=== PATIENT | male | born 1940 | race Caucasian/White ===

== ENCOUNTER → 2023-11-07 10:13 | Outpatient (REF) | payer OTHER, SELFPAY | LOC: HWRAD 10:13 | PROVIDERS: ATTENDING PHYSICIAN Internal Medicine | DX: R63.4 Abnormal weight loss (principal); Z00.00 Encounter for general adult medical examination without abnormal findings | CPT/HCPCS: 71046 ==

== ENCOUNTER → 2023-11-14 09:04 | Outpatient (REF) | payer OTHER, SELFPAY | LOC: DHCBS HW 09:04 | PROVIDERS: ATTENDING PHYSICIAN Internal Medicine Cardiovascular Disease; FAMILY PHYSICIAN Internal Medicine | DX: I35.0 Nonrheumatic aortic (valve) stenosis (principal) | CPT/HCPCS: 93306 ==

== ENCOUNTER → 2023-12-13 11:27 | Outpatient (REF) | payer OTHER, SELFPAY | LOC: PET 11:27 | PROVIDERS: ATTENDING PHYSICIAN Specialist | DX: C61 Malignant neoplasm of prostate (principal) | CPT/HCPCS: 78815 ==

== ENCOUNTER → 2024-01-02 09:07 | Outpatient (REF) | payer OTHER, SELFPAY | LOC: PET 09:07 | PROVIDERS: ATTENDING PHYSICIAN Internal Medicine | DX: R91.1 Solitary pulmonary nodule (principal); C61 Malignant neoplasm of prostate | CPT/HCPCS: 78815; A9552 ==

== ENCOUNTER → 2024-02-18 08:24 | Outpatient (REF) | payer OTHER, SELFPAY | LOC: HWRAD 08:24 | PROVIDERS: ATTENDING PHYSICIAN Internal Medicine | DX: R94.2 Abnormal results of pulmonary function studies (principal); R91.8 Other nonspecific abnormal finding of lung field | CPT/HCPCS: 71260; Q9967 ==

== ENCOUNTER → 2024-04-30 08:09 | Outpatient (REF) | payer OTHER, SELFPAY | LOC: HWRCS 08:09 | PROVIDERS: ATTENDING PHYSICIAN Internal Medicine Cardiovascular Disease; FAMILY PHYSICIAN Internal Medicine | DX: I35.0 Nonrheumatic aortic (valve) stenosis (principal) | CPT/HCPCS: 93306 ==

== ENCOUNTER → 2024-09-22 09:20 | Outpatient (REF) | payer OTHER, SELFPAY | LOC: HWRAD 09:20 | PROVIDERS: ATTENDING PHYSICIAN Internal Medicine Critical Care Medicine; FAMILY PHYSICIAN Internal Medicine | DX: R91.1 Solitary pulmonary nodule (principal) | CPT/HCPCS: 71250 ==

== ENCOUNTER → 2025-03-15 12:42 | Outpatient (REF) | payer OTHER, SELFPAY | LOC: HWRAD 12:42 | PROVIDERS: ATTENDING PHYSICIAN Nurse Practitioner Family | DX: R06.09 Other forms of dyspnea (principal) | CPT/HCPCS: 71046 ==

== ENCOUNTER → 2025-03-18 10:07 | Outpatient (REF) | payer OTHER, SELFPAY | LOC: RCS 10:07 | PROVIDERS: ATTENDING PHYSICIAN Internal Medicine Cardiovascular Disease; FAMILY PHYSICIAN Internal Medicine | DX: I35.0 Nonrheumatic aortic (valve) stenosis (principal) | CPT/HCPCS: 93306 ==

== ENCOUNTER 2025-03-24 12:41 | Day surgery (SDC) | payer OTHER, SELFPAY ==
--- NOTE | 2025-03-23 15:55 | CONSULT.STRU ---
Addendum entered and electronically signed by CINDY Bustamante 03/24/25 15:24:
DOS 03/24/2025
Original Note:
Consultation
-
Date/Time Consultation Requested: 03/24/2025
Date/Time Consultation Performed: 03/24/2025
Requesting Provider: Michelle Mckeon MD
Performing Provider: CINDY Bustamante
Reason for Consultation: /TAVR
Patient History
Physicians
Family Physician: Stacie Black MD
Outpatient Pin Sorter And Bagger: Mark Olsen MD
Primary Pin Sorter And Bagger: Mark Olsen MD
History of Present Illness
Mr. Raza is a very pleasant 85 yom with a past medical history significant for , HTN, HLD, and TIA. His most recent echocardiogram from 03/18/2025 is notable for EF 53-60%, AV P/M 59/33, JOSE CRUZ 0.7, Pk laura 3.83, trace AI, mild MR, PAP 30. From a
symptomatology standpoint, patient describes EDWARDS more noticeable over the last several weeks and more so when playing tennis. Discussed the pathophysiology and treatment optons of including SAVR and TAVR. Prescription, appointments, TAVR booklet,
and contact information given to patient. Allowed for and answered questions to the best of my ability.
Past Medical History
Past Medical History: CVA/TIA, HTN, Valvular Disease (Aortic stenosis) and Other (hyperlipidemia. OA, cataracts, gout,m BPH, prostate Ca)
Past Surgical History
Past Surgical History: Orthopedic ((R) femur ORIF) and Other (cataract surgery)
Dental History
Dr. Urbano
Family History
Mother: Cause of (diabetes)
Father: Cause of (cancer)
Social History
Alcohol: None
Drug: None
Tobacco: Non-Smoker
Personal:
Living: With Family
Allergies
Allergy/AdvReac Type Severity Reaction Status Date / Time
No Known Allergies Allergy Unverified 09/25/11 15:29
Home Medications
�Medication �Instructions �Recorded �Confirmed �Type
Vitamin B-12 1 tab sublingual DAILY 09/25/11 09/25/11 History
aspirin 325 mg tablet 325 mg PO DAILY 09/25/11 09/25/11 History
docosahexaenoic acid (dha)-epa 120 3 cap PO BID 09/25/11 09/25/11 History
mg-180 mg capsule
lvjcgnfysdn-nasmevsgc-oli C-Mn 750 1 tab PO BID 09/25/11 09/25/11 History
mg-600 mg-55 mg-5 mg tablet
lisinopril 10 mg tablet 10 mg PO DAILY 09/25/11 09/25/11 History
rosuvastatin 10 mg tablet (Crestor) 10 mg PO DAILY 09/25/11 09/25/11 History
rosuvastatin 10 mg tablet (Crestor) 10 mg PO DAILY 09/25/11 09/25/11 History
saw palmetto 450 mg capsule 450 mg PO QPM 09/25/11 09/25/11 History
STS%
STS %: 4.42
Review of Systems
-
History Source: Patient
General: Reports Fatigue
Respiratory: Reports EDWARDS
Cardiac: Reports No Symptoms
Abdomen/GI: Reports No Symptoms
: Reports No Symptoms
Musculoskeletal: Reports No Symptoms
Skin: Reports No Symptoms
Neurological: Reports No Symptoms
Vascular: Reports No Symptoms
Physical Exam
Labs
03/15/2025
BUN/Creatinine 15.17
GFR>60
HH: 15.3/45.2
Plt: 377
Diagnostic Studies
ECHOCARDIOGRAM 03/18/2025:
CONCLUSIONS
1. Small left ventricle with mild concentric left ventricular hypertrophy and
preserved systolic function, EF 53-60%
2. Thickened mitral leaflets with mild mitral regurgitation and normal left
atrium
3. Severe aortic stenosis, peak/mean gradient 59/33 mmHg, aortic valve area
0.7 cm2. No aortic regurgitation
4. Normal right heart with pulmonary artery systolic pressure of 30 mmHg
In April 2024 peak and mean aortic valve gradients were 67 and 40 mmHg. The
aortic valve area was 0.7 cm 2 and there was trace aortic regurgitation. The
ejection fraction was 55-60%.
Procedure Type:�Isolated AVR
Perioperative Outcome Estimate %
Operative Mortality 4.42%
Morbidity & Mortality 10.4%
Stroke 2.31%
Renal Failure 1.43%
Reoperation 3.91%
Prolonged Ventilation 5.27%
Deep Sternal Wound Infection 0.037%
Long Hospital Stay (>14 days) 4.42%
Short Hospital Stay (<6 days)* 33.9%
Exam
General: Well Developed, Well Nourished, No Apparent Distress and Comfortable
HEENT: Normocephalic
Respiratory: Clear
Cardiac: Murmur (III/ VESTA)
GI: Soft and Non Tender
Rectal: Deferred by Provider
Skin: Warm and Dry
Neuro: Awake, Alert, Oriented and AO x 3
Psych: Calm
Assessment / Plan
-
Aortic stenosis DATE OF SERVICE/CONSULT 03/24/2025
Continue with TAVR evaluation
Trend creatinine after contrast administration
CT TAVR
CT surgical consult
Frailty testing and KCCQ12 at consult
Continue Plavix
Dental clearance
Heart team discussion
Data Reviewed
-
EKG: Report Reviewed by me
Computer Consultant: Report Reviewed by me and Discussed with Physician
Echo: Report Reviewed by me and Discussed with Physician
Labs: Labs Reviewed by me
Old Records: Reviewed
[2025-03-24] VITALS (10 sets, daily range): BP systolic 95–145; BP diastolic 65–107; BMI 21.0
--- NOTE | 2025-03-24 12:53 | ITS.CL.CATH ---
Manager Of Enterprise - Catheterization
Cardiac Catheterization
Procedure Report:
LEFT AND RIGHT HEART CATHETERIZATION
Date of Procedure: March 24, 2025
Referring: Silvio Guadarrama MD
PROCEDURES:
1. Left heart catheterization, coronary angiogram.
2. Moderate sedation.
3. Right heart catheterization.
INDICATION: Pre-TAVR, recent echocardiogram showing severe aortic stenosis with mean transaortic gradient of 40 mmHg, new dyspnea on exertion
ACCESS: Right radial artery, 6Fr. sheath, under US guidance.
Right brachial vein, 6 Croatian sheath
HEMODYNAMICS : (mmHg)
RA (m) : 5
RV (s/d,m) : 20/3, 9
PA (s/d, m) : 20/8, 13
PCWP (m) : 10
PA saturation: 62.9% on room air
AO saturation: 89.9% on room air
RA saturation: 62.8% on room air
Cardiac Output : 3.92 L/min
Cardiac Index : 2.2 L/min/m-2
Systemic vascular resistance: 1448 dsc^(-5)
Pulmonary vascular resistance: 1.78 davidson unit
AO (s/d) : 102/60
LVEDP: 12mmHg
Peak to peak gradient across aortic valve is 26 mmHg with a estimated valve area of 0.61 cm�
CORONARY FINDINGS
Dominance: Right
Left Main Trunk (LMT): Large caliber vessel that gives rise to the LAD and LCx branches and there is mild diffuse atherosclerotic plaque.
Left Anterior Descending Artery (LAD): Large caliber vessel that gives off 2 major diagonal branches as it courses along the anterior inter-ventricular groove before wrapping around the cardiac apex. There is mild to moderate degree of tortuosity.
Proximal to mid LAD has diffuse 30% stenosis. D2 is a medium caliber small to medium caliber vessel with a ostial 70% stenosis.
Left Circumflex Artery (LCx): Large caliber vessel that gives off 1 major branching obtuse marginal (OM) branch as it courses along the atrio-ventricular (AV) groove. Ostial left circumflex has a 50% stenosis. Otherwise there is mild diffuse
atherosclerotic plaque.
Right Coronary Artery (RCA): Large caliber dominant vessel that gives rise to the posterior descending artery (RPDA) and postero-lateral ventricular (RPLV) branches distally. Ostial RCA has 30% stenosis. Mid RCA has diffuse 30 to 40% stenosis.
No focal obstructive stenosis.
SEDATION: 37 minutes of procedural sedation was utilized. IV Midazolam and IV Fentanyl were administered. An independent certified medical dosimetrist was present to assist with and help manage the patient's level of consciousness and physiologic status.
RADIATION SUMMARY: Fluoro Time (min): 7.2, Dose (mGy): 315, DAP (Gy.cm2) : 17.5
Closure Device: There were no immediate intra-procedural complications. The sheath was pulled in the operations label clerk and a vascular-band applied to the right wrist for radial artery hemostasis using the patent hemostasis technique.
Manual pressure was held over the right brachial venous access site with successful hemostasis.
CONCLUSIONS
1. Proximal to mid LAD has diffuse 30% stenosis. D2 is a medium caliber small to medium caliber vessel with a ostial 70% stenosis.
2. Ostial left circumflex has a 50% stenosis.
3. Ostial RCA has 30% stenosis. Mid RCA has diffuse 30 to 40% stenosis.
4. Normal right low sided filling pressures with normal cardiac output and mildly elevated systemic vascular resistance.
5. Peak to peak gradient across aortic valve is 26 mmHg with a estimated valve area of 0.61 cm�
RECOMMENDATIONS
1. Wean radial band per protocol. Monitor right hand perfusion and for bleeding from the radial site following removal of the vascular-band following trans-radial access.
2. Continue aggressive medical therapy and risk factor modification for secondary CAD prevention.
3. Continue workup for TAVR assessment with CT angiogram of chest, abdomen and pelvis as well as CT surgical evaluation.
Copy to: Silvio Guadarrama MD
Michelle Mckeon MD, FAC, [facility]
[2025-03-24] MEDS: LOW STRENGTH ASPIRIN 324 MG PO (13:47)
[2025-03-24] MEDS: NSS 1000 IV (16:24)
== END 2025-03-24 19:35 | disposition home or self-care (01) ==
LOC: CATH 12:41
PROVIDERS: ATTENDING PHYSICIAN Internal Medicine Interventional Cardiology; FAMILY PHYSICIAN Internal Medicine
DX: I35.0 Nonrheumatic aortic (valve) stenosis (principal); I25.10 Atherosclerotic heart disease of native coronary artery without angina pectoris; I10 Essential (primary) hypertension; E78.5 Hyperlipidemia, unspecified; Z86.73 Personal history of transient ischemic attack (TIA), and cerebral infarction without residual deficits; N40.0 Benign prostatic hyperplasia without lower urinary tract symptoms; Z79.02 Long term (current) use of antithrombotics/antiplatelets
CPT/HCPCS: 99152; 99153; C1894; C1769; 93460; Q9967

== ENCOUNTER → 2025-04-07 08:58 | Outpatient (REF) | payer OTHER, SELFPAY | LOC: RAD 08:58 | PROVIDERS: ATTENDING PHYSICIAN Nurse Practitioner Acute Care; FAMILY PHYSICIAN Internal Medicine | DX: I35.0 Nonrheumatic aortic (valve) stenosis (principal) | CPT/HCPCS: 74174; 75572; Q9967 ==

== ENCOUNTER → 2025-05-05 12:19 | Outpatient (REF) | payer OTHER, SELFPAY | LOC: HWRAD 12:19 | PROVIDERS: ATTENDING PHYSICIAN Internal Medicine Critical Care Medicine; FAMILY PHYSICIAN Internal Medicine | DX: R91.8 Other nonspecific abnormal finding of lung field (principal) | CPT/HCPCS: 71250 ==

== ENCOUNTER 2025-05-13 11:07 | Inpatient (IN) | payer OTHER, SELFPAY ==
[2025-05-06 08:21] VITALS: BMI 21.3
[2025-05-06 09:07] LABS: Hematocrit 40.2 % (39.0-52.0); Hemoglobin 13.6 g/dL (13.0-18.0); Mean Corp Hgb Conc. 33.8 g/dL (33.0-37.0); Mean Corpuscular Volume 103.1 fL (80.0-94.0); Nucleated Red Blood Cells % 0 % (-); Platelet Count 298 10^3/uL (130-400); Red Cell Dist. Width 13.6 % (11.5-14.5)
[2025-05-06 09:07] LABS: Urine Character Clear (Clear)
[2025-05-06 09:17] LABS: Urine Red Blood Cell 0-2 /HPF (0-2); Urine Squamous Cell 0-2 /LPF (Few); Urine White Cell 0-2 /HPF (0-5)
[2025-05-06 09:25] LABS: INR 1.07; PT 14.5 Sec (11.4-14.6)
[2025-05-06 09:47] LABS: ALT (SGPT) 17 U/L (0-50); AST (SGOT) 22 U/L (17-59); Albumin 4.0 g/dl (3.5-5.0); Alkaline Phosphatase 77 U/L (38-126); Blood Urea Nitrogen 21 mg/dl (9-20); Calcium 9.6 mg/dl (8.4-10.2); Carbon Dioxide 27 mmol/L (22-30); Chloride 103 mmol/L (98-107); Estimated Creatinine Clearance 53 ml/min; Glucose 110 mg/dl (70-99); Potassium 4.0 mmol/L (3.5-5.1); Sodium 138 mmol/L (135-145); Total Protein 7.1 g/dl (6.3-8.2); eGFR > 60.00
--- NOTE | 2025-05-06 09:59 | CM ---
Chart reviewed. Met with the patient, and daughter in PAT. Reviewed preoperative and postoperative instructions and restrictions, along with showering guidelines. Gave patient 2 soaps. Patient is agreeable to a home visit by CT
Transitional RN. Patient is independent of ADLS, still plays tennis,lives with his in [address], 1 [place], 0 DME. Plan is for the patient to return home with CT Transitional RN.
[2025-05-06 11:14] LABS: Glycohemoglobin (HgbA1c) 5.8 % (4.0-5.6)
[2025-05-13] VITALS (21 sets, daily range): BP systolic 87–138; BP diastolic 49–93; BMI 21.1
--- NOTE | 2025-05-13 11:50 | W.CVOR.SURPR ---
CVOR Surgeon Immed Pre Op
-
I have examined this patient prior to performance of the scheduled procedure.
The patient's condition is unchanged from the time of the dictated/written History and
Physical and the patient is able to undergo the scheduled procedure.
[2025-05-13] MEDS: ANCEF 10 IV (15:05)
[2025-05-13 16:13] LABS: ACT-LR - POC 294 Seconds (116-155)
--- NOTE | 2025-05-13 16:16 | CM ---
Reviewed chart. Mr. Raza is in the operating room today. Prior to admission he resides with his spouse in a two story home with one step to enter. Prior to admission he was independent with ambulation and adls. He does not have any DME in the home.
He has a prescription plan. Medical work-up in progress. The discharge plan is to return home with his spouse and a home visit by the Transitional Care Nurse when medically stable.
--- NOTE | 2025-05-13 16:51 | W.IMMPOSTOP ---
Surgical Immed Post Op Note
-
[id number]
STRUCTURAL HEART PROCEDURE NOTE: TAVR
Preoperative Dx:
Severe aortic stenosis with peak/mean gradients of 59/33 mmHg respectively, DI 0.2, JOSE CRUZ 0.7, peak velocity 3.83.
Mild mitral regurgitation
History of TIA
Femoral fracture status post ORIF in 2011
Osteoarthritis in bilateral hands
Arthropathies
Hypertension
Hyperlipidemia
BPH
Impaired fasting glucose
Prostate CA
Cataracts
Small intestinal diverticuli
Postoperative Dx:
Same
Procedures:
Left common femoral venous access with ultrasound and fluoroscopic guidance, micropuncture technique, long 6 Greek sheath
Left common femoral arterial access with tactile, ultrasound, and fluoroscopic guidance, micropuncture technique, limited angiography through the micropuncture sheath, long 6 Greek sheath placement
Right common femoral artery access with tactile, ultrasound, and fluoroscopic guidance, micropuncture technique, limited angiography, 8 Greek dilator placement
Perclose placement x 2 into right common femoral artery, 8 Greek sheath placement
Placement of temporary RV pacing wire via left common femoral venous access with threshold testing
Placement of pigtail catheter in right coronary cusp with limited aortography and confirmation of coplanar valve deployment angles
Placement of Hopkins E sheath via right common femoral arterial access
Wire purchase across the stenotic aortic valve (AL-1, soft-tipped straight, table J-wire, LVEDP assessment [not significantly elevated, 18 mmHg], Extra-stiff wire with curve proximal end)
Right transfemoral TAVR with placement of 29 mm ERINN 3 Resilia valve
Completion aortography
Completion transthoracic echocardiographic assessment (mean gradient 3 mmHg, no AI or paravalvular leak)
Removal of valve delivery system/Hopkins E sheath with right common femoral arterial management with Perclose sutures x 2, manual pressure
Completion right iliofemoral angiography x 2
Removal of temporary pacing wire
Removal of left common femoral arterial 6 Greek sheath with management with 6 Greek Angio-Seal, manual pressure
Removal of left common femoral venous 6 Greek sheath with management with manual pressure
Metal Drill Operator:
Dr. Michelle Mckeon
Cardiac Surgeon:
Dr. Dannie Wan
Anesthesia:
MAC with local to bilateral groins
Implants:
Hopkins Lifesciences, 29 mm ERINN 3 valve, model #9755 RS, serial #[id number]
Perclose x 2 to right common femoral artery
Angio-Seal, 6 Greek, 2 left common femoral artery
Cath Data:
Start: 1530hrs, Deploy: 1607hrs, End: 1631hrs
FT: 12.0, mGy: 147, DAP: 18.6, Contrast: 110
Mean 3mmHg, no AI/PVL
Complications:
No significant complications
The balloon to expand the TAVR valve, after partial successful inflation, would not allow for additional saline/inflation of the balloon. The TAVR valve was in 'hourglass' shape. Fortunately, with a slightly extended pacing run and additional
pressure on the insufflator, the balloon was able to reach full expansion with good expansion of the valve circumferentially. We inspected the TAVR valve delivery system and balloon ex vivo and no causative issue could be identified to explain this
difficulty in inflation. It is in enigma as to why this valve allowed for initial inflation with a sudden stop and then resumption of the ability to insufflation.
Condition:
Neuro intact
Stable/guarded to recovery
--- NOTE | 2025-05-13 17:26 | ITS.CL.TAVR ---
Tool Lathe Operator - TAVR Report
TAVR PRocedure
Procedure Report:
TRANSCATHETER AORTIC VALVE REPLACEMENT
Date of Procedure: May 13, 2025
Referring: Silvio Guadarrama MD
Operators: Drs. Michelle Mckeon and Dannie Wan
PROCEDURE PERFORMED:
1. Successful placement of 29 mm Hopkins Rios S3 aortic valve via right common femoral approach.
2. Ultrasound-guided access.
3. Bilateral femoral angiography.
ACCESS:
1. Right common femoral artery, 8 Indian sheath, under ultrasound guidance using a micropuncture kit.
2. Right common femoral vein, 6 Indian sheath, under ultrasound guidance using a micropuncture kit.
3. Left common femoral artery, 6 Indian sheath, under ultrasound guidance using a micropuncture kit.
Ultrasound was utilized for vascular access. The right and left femoral artery and vein were visualized under ultrasound, and the vessels was patent and arteries were pulsatile. An image was stored permanently in the patient's medical record.
Under direct ultrasound guidance, a 6 Indian sheaths was inserted into the left common femoral artery and vein, and an 8 Indian sheath in the right common femoral artery, respectively, using a micropuncture kit through a modified Seldinger technique.
PREPROCEDURE NYHA CLASS: II
DESCRIPTION OF PROCEDURE: The patient was referred for assessment of severe symptomatic aortic stenosis and following a comprehensive evaluation it was felt that transcatheter aortic valve replacement (TAVR) would be the most appropriate treatment.
Informed consent was obtained prior to the procedure. A 'time-out' was called and the procedural plan was verbally confirmed by anesthesia, surgery, perfusion, and labor law professor staff.
Arterial and venous access site were obtained in the left common femoral artery and vein using ultrasound guidance and micropuncture technique. 6 Fr. sheaths were inserted.
A 5 Fr. transvenous pacing wire was advanced to the right ventricle where excellent pacing thresholds were obtained.
A 5 Fr. pigtail catheter was then advanced to the proximal ascending aorta / right aortic cusp where angiography was performed in multiple angles to define the co-planar angle that was most appropriate valve deployment (SOLORIO 10/ Cran 5).
Ultrasound guidance was then used to obtain arterial access in the right common femoral artery and a 4 Fr. micropuncture sheath was inserted. Angiography was performed and the arteriotomy site appeared appropriate for preclosure with two Perclose
devices. An 8 Fr sheath was then inserted back into the common femoral artery over a J-tipped guidewire. An AL1 catheter was positioned in the proximal descending aorta. An Extra Stiff 0.035' J-tip wire was inserted to provide extra-support to
facilitate the Hopkins eSheath delivery. The 16 Fr. Hopkins eSheath was successfully advanced in the descending thoracic aorta.
An AL1 catheter was advanced through the Hopkins eSheath over a 0.035' J-tip guide wire. The AL1 catheter was positioned just above the aortic valve. A 0.035' Straight tip wire probed the aortic valve and crossed the stenotic leaflets. The AL1
was then advanced to the mid left ventricle. Estimated LV end-diastolic pressure invasively was 18mmHg. An Amplatz Extra-stiff wire with a generous curved tip was then positioned in the left ventricular apex. A 29 mm Hopkins Rios S3 valve was
brought to the table and the orientation of the valve on the balloon delivery system was confirmed by all operators. The Rios S3 valve was advanced through the eSheath and into the proximal descending thoracic aorta. The Rios S3 valve was
centered on the delivery balloon and the entire system was retroflexed as it crossed the aortic arch. The Rios S3 delivery system was then advanced across the stenotic valve and the 29mm Rios S3 valve was deployed during rapid pacing. While
inflating the valve balloon there was an unexplained glitch where the balloon stopped expanding two [address] in without clear explanation despite additional pressure being applied to inflate the balloon but thankfully with some manipulation
we were eventually able to get the valve fully expanded resulting in a longer pacing run. The valve deployment was otherwise uneventful. Transthoracic echocardiographic images post valve deployment revealed minimal aortic insufficiency with
excellent position of the aortic prosthesis.
The Hopkins balloon and delivery system were then removed. The Hopkins sheath was removed and the Perclose knots were advanced to the arteriotomy site resulting in excellent hemostasis.
Femoral angiography: Femoral arteriotomy bilaterally is noted to be above the bifurcation and below the inferior epigastric artery. There is minimal luminal irregularities in the visualized external iliac and femoral vessels.
CONCLUSIONS:
1. Severe symptomatic aortic stenosis. Successful deployment of a 29 mm Rios S3 valve with minimal aortic insufficiency post procedure
2. Successful arteriotomy closure with 2 Perclose devices.
Michelle Mckeon MD, [facility], [facility]
Copy to: Silvio Guadarrama MD
[2025-05-13] MEDS: ANCEF IV (18:14)
--- NOTE | 2025-05-13 18:58 | PTCARENOTE ---
Pt received from recovery area post TAVR. Pt reported mild groin discomfort. Right femoral site with dry and intact dressing, no sign of bleeding or hematoma. Left groin dressing with small marked area of drainage, no sign of hematoma. Pt oriented X
3 , neuro assessment unremarkable as noted. Pt voiding without difficulty. Telemetry shows sinus rhythm with first degree AV block, SBP's 100-118, levo infusing at 2mcg's. Activity restrictions reviewed with pt and his who state understanding.
Plan to monitor closely overnight, CXR and ECHO on 05/14.
[2025-05-13] MEDS: ZYLOPRIM 300 MG PO (19:15)
[2025-05-13] MEDS: CRESTOR 20 MG PO (21:30)
[2025-05-13] MEDS: ANCEF 5 IV (21:30)
--- NOTE | 2025-05-13 22:35 | PTCARENOTE ---
Assumed care of the pt @ 1900. Pt is AAOx3 family at bedside. SR with 1st degree AVB on the monitor Levophed infusion titrated off see flowsheet. Neuro intact. Rt groin dressing c/d/i no hematoma Left dressing sm amt blood marked and unchanged no
evidence of hematoma + distal pulses. POC discussed with pt. Call hernandez within reach.
[2025-05-14 02:20] VITALS: BP 128/79
[2025-05-14 02:30] VITALS: BMI 20.8
[2025-05-14 03:38] LABS: Hematocrit 37.3 % (39.0-52.0); Hemoglobin 12.9 g/dL (13.0-18.0); Mean Corp Hgb Conc. 34.6 g/dL (33.0-37.0); Mean Corpuscular Volume 101.6 fL (80.0-94.0); Platelet Count 241 10^3/uL (130-400); Red Cell Dist. Width 13.4 % (11.5-14.5)
[2025-05-14 03:56] LABS: Blood Urea Nitrogen 22 mg/dl (9-20); Calcium 9.3 mg/dl (8.4-10.2); Carbon Dioxide 26 mmol/L (22-30); Chloride 104 mmol/L (98-107); Estimated Creatinine Clearance 58 ml/min; Glucose 155 mg/dl (70-99); Potassium 4.5 mmol/L (3.5-5.1); Sodium 136 mmol/L (135-145); eGFR > 60.00
[2025-05-14 08:02] VITALS: BP 102/72
--- NOTE | 2025-05-14 08:08 | W.PN.CT ---
Today's Communication / Plan
-
-pod #1
-no issues overnight
-nsr, PVCs. No myles or pauses
-Echo today
-possible discharge
Assessment / Plan
-
- Severe symptomatic - s/p Right transfemoral TAVR with placement of 29 mm ERINN 3 Resilia valve on 05/13/25, pod #1
- Intraop TTE: Mean 3mmHg, no AI/PVL
- Mild mitral regurgitation
- History of TIA
- Femoral fracture status post ORIF in 2011
- Osteoarthritis in bilateral hands
- Arthropathies
- Hypertension
- Hyperlipidemia
- BPH
- Impaired fasting glucose
- Prostate CA
- Cataracts
- Small intestinal diverticuli
Discussed patient care with: Nursing and Care Team
Subjective
-
Date of Service: May 14, 2025
Objective Data
-
Lab Results
05/14/25 02:29
05/14/25 02:29
PT 14.5 Sec (11.4-14.6) 05/06/25 08:31
INR 1.07 05/06/25 08:31
Vital Signs
Vital Signs
Temp Pulse Resp BP Pulse Ox
97.9 F 79 20 128/79 96
05/14/25 08:02 05/14/25 05:00 05/14/25 08:02 05/14/25 02:20 05/14/25 08:02
CT Intake/Output/Weight
05/13/25 05/14/25 05/14/25
18:59 06:59 18:59
Intake Total 1500 / 1500
Output Total 700 / 700
Balance 800 / 800
SaO2: 96
Physical Exam
-
General: Awake and AOx3
Cardiovascular: Regular rate & rhythm, No Murmurs and No Rub
Respiratory: Clear
Incision: Clean, Dry and Intact (soft, no hematoma b/l)
Extremities: No Edema
Data Reviewed
-
Lab Results: Results Reviewed
Medications: Active Meds Reviewed
Chest X-Ray: Report Reviewed and Image Reviewed
ECG: Report Reviewed and Image Reviewed
--- NOTE | 2025-05-14 08:22 | W.PN.ANS.POP ---
Anesthesia Post Operative
- Anesthesia Post Op Note
Vital Signs Stable-See Nursing Note: Yes
Airway Patent: Yes
Adequate Pain Control: Yes
Change in Mental Status: No
Current Postoperative Nausea & Vomiting: No
Anesthesia Complications: No
General Anesthetic Recall: No
Unplanned Admission: No
Post Op Hydration Adequate: Yes
[2025-05-14] MEDS: TOPROL XL PO (08:45)
[2025-05-14] MEDS: PLAVIX 75 MG PO (08:45)
[2025-05-14] MEDS: CASODEX 50 MG PO (08:45)
[2025-05-14] MEDS: VITAMIN C 500 MG PO (08:45)
--- NOTE | 2025-05-14 09:11 | CM ---
Reviewed chart. Met with Mr. Raza to review discharge plans. He states he is feeling well and maybe able to go home soon. He states prior to admission he resides with his spouse in a two story home with two steps to enter. He states he has a full
flight of steps to get to bedroom/full bathroom. He states he has a powder room on the first floor. He states prior to admission he was independent with ambulation and adls. He states he has a walker in the garage in storage that he is not using.
He states he has a prescription plan and uses [facility]. He states his spouse will be home to assist in his care if needed. He states he has been ambulating in the room. We reviewed a home visit by the Transitional Care Nurse. He is
agreeable to a home visit. Medical work-up in progress. The discharge plan is to return home with his spouse and a home visit by the Transitional Care Nurse when medically stable.
--- NOTE | 2025-05-14 09:37 | W.PN.CARDCBS ---
Addendum entered and electronically signed by Michelle Mckeon MD 05/14/25 15:17:
I saw and examined the patient.
The Home Appraiser's note was reviewed and I agree with the note.
Comment: Overnight patient did well with no acute complaints. He has been ambulated within his room without any difficulty. He denies any lightheadedness chest discomfort or shortness of breath.
Signs and labwork reviewed. On exam patient is well-appearing, out of bed in a chair, awake, alert and oriented x 3, regular rate, normal S1 and S2, no murmurs, rubs or gallops, lungs are clear to auscultation bilaterally, no carotid bruits,
abdomen is soft, nontender, nondistended with active bowel sounds, bilateral groin sites with dressing in place which is clean, dry and intact without evidence of hematoma or bruit. Warm extremities without significant edema.
Telemetry with no significant evidence of heart blocks or tachyarrhythmias/ectopy.
Echocardiogram reviewed by myself showed preserved all overall LV systolic function with trans aortic mitral gradient across the 29 mm Hopkins ERINN S3 TAVR valve of 8 mmHg. No PVL. No pericardial effusion
Recommendations:
1. Discussed with nursing in regards to ambulating halls. He had 1 episode of hypotension overnight but his blood pressures more recently have been stable and normal. Patient denies any dizziness or any associated symptoms with this.
2. Continue daily Plavix.
3. Echocardiogram postop day 1 post TAVR as noted above.
4. Continue all other home cardiac medications and we will work on setting up outpatient cardiology follow-up.
5. Discussed with patient importance of secondary risk factor management, importance of tolerating a Mediterranean type diet and staying physically active.
6. We also discussed outpatient cardiac rehab.
Michelle Mckeon MD, [facility], [facility]
Total time spent: 35 minutes
Original Note:
Today's Communication / Plan
-
Follow-up blood pressures
Continue Plavix
echo pending
Ambulate
Likely DC
Impression / Plan
-
Primary Traffic Sign Supervisor: Dr. Guadarrama
Assessment:
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
- Mild mitral regurgitation
- History of TIA
- Femoral fracture s/p ORIF 2011
- OA
- Hypertension
- Hyperlipidemia
- BPH
- Impaired fasting glucose
- Prostate CA
ECHO 03/18/2025: EF 53 to 60%, mild LVH, mild MR, severe with peak/mean gradients 59/33 mmHg, JOSE CRUZ 0.7 cm�, normal right heart
Echo 05/13/2025: EF 55 to 60%, status post 29 mm Hopkins ERINN TAVR with mean gradient 3 mmHg, no significant regurg
Plan:
- Patient's status post right transfemoral TAVR 05/13/2025
- Feeling well overnight
- No groin pain
- In sinus rhythm on review of telemetry
- Echo pending
- Ambulate
- Blood pressure is on low side. Will repeat later this morning, and if improving will give dose of outpatient Toprol 12.5 mg daily
- Continue outpatient Plavix
- Outpatient cardiac follow-up arranged
- Cardiac rehab
- Likely for discharge today
Progress Note - Traffic Sign Supervisor
Subjective
Date of Service: May 14, 2025
Feeling well.
Objective
Labs:
05/14/25 02:29
05/14/25 02:29
Labs
Hgb 12.9 g/dL (13.0-18.0) L 05/14/25 02:29
Hct 37.3 % (39.0-52.0) L 05/14/25 02:29
Plt Count 241 10^3/uL (130-400) 05/14/25 02:29
PT 14.5 Sec (11.4-14.6) 05/06/25 08:31
INR 1.07 05/06/25 08:31
Sodium 136 mmol/L (135-145) 05/14/25 02:29
Potassium 4.5 mmol/L (3.5-5.1) 05/14/25 02:29
BUN 22 mg/dl (9-20) H 05/14/25 02:29
Creatinine 0.8 mg/dL (0.7-1.3) 05/14/25 02:29
Glucose 155 mg/dl (70-99) H 05/14/25 02:29
Vital Signs and I&O:
Vital Signs
Temp Pulse Resp BP Pulse Ox
97.9 F 61 20 102/72 96
05/14/25 08:02 05/14/25 08:30 05/14/25 08:02 05/14/25 08:45 05/14/25 08:41
Vital Signs
Temp Pulse Resp BP Pulse Ox
97.9 F 61 20 102/72 96
05/14/25 08:02 05/14/25 08:30 05/14/25 08:02 05/14/25 08:45 05/14/25 08:41
Intake & Output
05/12/25 05/13/25 05/14/25 05/15/25
07:59 07:59 07:59 07:59
Intake Total 1500 / 1500
Output Total 700 / 700
Balance 800 / 800
Physical Exam
Physical Exam
GEN: No distress, awake, alert, oriented x3
HEENT: supple, anicteric, mmm, EOMI
LUNGS: CTA bilaterally, no wheezes/rales
CV: Reg, S1/S2, 1/6 syst LSB
ABD: soft, BS+, NT/ND
EXT: No cyanosis, clubbing. trace edema of bilateral lower extremity
NEURO: Gross non-focal
SKIN: Warm, pink, dry. No rash
--- NOTE | 2025-05-14 10:13 | W.DCSUMMARY ---
Discharge Summary
Discharge Data
Date of Admission: 05/13/25
Date of Discharge: 05/14/25
-
Pending Results: No
Hospital Course
Primary care physician: Stacie Black
Outpatient ethanol quality leader: Raúl
Inpatient consultants: SALUD
Procedures:
1. 05/13/25 s/p Right transfemoral TAVR with placement of 29 mm ERINN 3 Resilia valve by Drs. Wan & Linda
Primary Diagnosis:
1. severe aortic stenosis
Secondary Diagnoses:
1. hx of TIA
2. femoral fx s/p ORIF 2011
3. osteoarthritis
4. hypertension
5. hyperlipidemia
6. BPH
7. impaired fasting glucose
8. hx prostate CA
9. hx cataract extraction
10. Gout
HPI: Patient is an 85y/oM with known aortic stenosis and complaints of decreasing exercise tolerance. Most recent echo demonstrates now severe aortic stenosis with peak and mean gradients of 59/33 mmHg respectively with aortic valve area of 0.7
cm� and preserved LV function. Cardiac cath revealed moderate coronary disease with recommendation for medical management. Patient was therefore referred for elective TAVR. After all preoperative workup was completed he was deemed a suitable
candidate to undergo the procedure.
Hospital course: Patient was electively admitted on 05/13/2025 where he underwent a uncomplicated right transfemoral TAVR with a 29 mm ERINN 3 Resilia valve by Drs. Wan and Linda. Patient was transferred to recovery with low-dose Levophed which
was weaned off without incident. Postop EKG demonstrated sinus bradycardia with first-degree AV block and incomplete right bundle branch block. He remained hemodynamically stable overnight on postop day 1 his EKG is unchanged. He is ambulatory
without difficulties. Follow-up echo was completed which demonstrates well seated TAVR with no significant leak, mean gradient of 8mmHg. Pt discharged to home in the care of his family with close follow up from the transitional care nurse from .
Home medication changes: All home meds resumed
Discharge Plan
-
Patient Disposition: Home (Routine Discharge)
Discharge Diagnosis/Procedures: TF-TAVR
Condition: Good
Diet: Low Cholesterol and 2 Gram Sodium
Activity: As tolerated
Driving Restrictions: No driving for 1 week
Bathing Restrictions: OK to Shower
Others Tests: 30 day follow up echocardiogram:06/10/2025 at 1pm at the [facility].
Other Services: Cardiac Rehab
Wound Care: Please do not apply lotions, creams or powders to groin areas. Please monitor for increased swelling, redness, pain or drainage. Notify your doctor if any occur.
Specialty Instructions: Weigh Daily- Call MD for wt gain/loss 3 lbs overnight/5 lbs in 1 week
Stand Alone Forms: DC Inst - TransFemoral (TAVR)
Referrals:
CT Transitional Care Nurse [Outside] - in one to two days
Referral Note:
The Cardiothoracic Transitional Care Nurse will call you to set up a visit in 1-2 days.
[facility] [Outside]
Referral Note: Cardiac Rehab Orientation appointment and� First Exercise appointment is on 06/09/2025 at 9:30.
The Cardiac Rehab gym is located on the first floor of the [facility].
Stacie Black MD [Family Provider, Internal Medicine] - in four to six weeks
Referral Note: Please make an appintment in four to six weeks.
Mitali Daniel CRNP [Specified Professional Personl, Cardiology] - 06/24/25 3:00 pm
Prescriptions:
New
acetaminophen 325 mg Tablet
650 mg PO Q6HPRN PRN (Reason: SAM, mild pain, or fever >101F) Qty: 0 0RF
Continued
bicalutamide [Casodex] 50 mg Tablet
50 mg PO DAILY
clopidogrel 75 mg Tablet
75 mg PO DAILY
allopurinol 300 mg Tablet
300 mg PO QPM
metoprolol succinate [Toprol XL] 25 mg Tablet Extended Release 24 Hr
12.5 mg PO DAILY
Vitamin B-12 50 mcg Lozenge
25 mcg PO HS
rosuvastatin 20 mg tablet
20 mg PO HS
Discharge Date and Time
Print Language: WELSH
[2025-05-14 11:12] VITALS: BP 126/72
[2025-05-14 11:17] VITALS: BP 136/84
[2025-05-14 11:26] VITALS: BP 144/55
[2025-05-14] MEDS: TOPROL XL 12.5 MG PO (11:55)
[2025-05-14 14:43] VITALS: BP 113/51
--- NOTE | 2025-05-14 15:42 | PTCARENOTE ---
Pt denies any discomfort up walking around unit and with cardiac rehab without problem. Echo done. Telemetry and IV devices removed. Discharge instructions reviewed with pt and his regarding activity and driving restrictions, wound care,
medications and their possible side effects, reporting cares and concerns and follow up appt's. Very good understanding verbalized. Pt escorted out via wheelchair and discharged to home.
== END 2025-05-14 15:46 | disposition home or self-care (01) | DRG 267 ==
LOC: IVU 11:07
PROVIDERS: Nurse Practitioner; ADMITTING PHYSICIAN Thoracic Surgery (Cardiothoracic Vascular Surgery); FAMILY PHYSICIAN Internal Medicine; OTHER PHYSICIAN Internal Medicine Interventional Cardiology
PROC: 02RF38Z Replacement of Aortic Valve with Zooplastic Tissue, Percutaneous Approach (ICD-10-PCS; 2025-05-13)
DX: I35.0 Nonrheumatic aortic (valve) stenosis (principal); I10 Essential (primary) hypertension; E78.5 Hyperlipidemia, unspecified; I44.0 Atrioventricular block, first degree; I45.10 Unspecified right bundle-branch block; R00.1 Bradycardia, unspecified; Z85.46 Personal history of malignant neoplasm of prostate; R73.01 Impaired fasting glucose; N40.0 Benign prostatic hyperplasia without lower urinary tract symptoms; H26.9 Unspecified cataract; M19.041 Primary osteoarthritis, right hand; M19.042 Primary osteoarthritis, left hand; M10.9 Gout, unspecified; Z86.73 Personal history of transient ischemic attack (TIA), and cerebral infarction without residual deficits; I25.10 Atherosclerotic heart disease of native coronary artery without angina pectoris
CPT/HCPCS: 33361; 36415; 71045; 71046; 80048; 80053; 81003; 81015; 82248; 83036; 83880; 85025; 85027; 85347; 85610; 86850; 86900; 86901; 86920; 87070; 93005; 93308; 93321; 93325; C1760; C1769; C1894; Q9967

== ENCOUNTER 2025-05-21 13:35 | Inpatient (IN) | payer OTHER, SELFPAY ==
[2025-05-20] VITALS (17 sets, daily range): BP systolic 83–139; BP diastolic 55–87; BMI 22.8
[2025-05-20 10:00] LABS: Hematocrit 35.6 % (39.0-52.0); Hemoglobin 12.2 g/dL (13.0-18.0); Mean Corp Hgb Conc. 34.3 g/dL (33.0-37.0); Mean Corpuscular Volume 103.8 fL (80.0-94.0); Nucleated Red Blood Cells % 0 % (-); Platelet Count 164 10^3/uL (130-400); Red Cell Dist. Width 13.2 % (11.5-14.5)
[2025-05-20 10:04] LABS: ALT (SGPT) 18 U/L (0-50); AST (SGOT) 22 U/L (17-59); Albumin 3.6 g/dl (3.5-5.0); Alkaline Phosphatase 80 U/L (38-126); Blood Urea Nitrogen 26 mg/dl (9-20); Calcium 9.0 mg/dl (8.4-10.2); Carbon Dioxide 25 mmol/L (22-30); Chloride 106 mmol/L (98-107); Estimated Creatinine Clearance 53 ml/min; Glucose 135 mg/dl (70-99); Potassium 3.8 mmol/L (3.5-5.1); Sodium 138 mmol/L (135-145); Total Protein 6.5 g/dl (6.3-8.2); eGFR > 60.00
--- NOTE | 2025-05-20 10:04 | ED.GENMED ---
History of Present Illness
General
Chief Complaint: Cardiac Symptoms
Source: patient
Exam Limitations: none
Time Seen by Provider: 05/20/25 09:24
Nursing documentation reviewed up to this point in time: agreed with
History of Present Illness
History of Present Illness:
Patient status post TAVR procedure last week with Dr. Wan, presents to ED from liaison planner office this morning, where he was found to be having high degree AV block. This was already outpatient evaluation from the procedure. Patient denies
chest pain or palpitations. Denies dizziness or shortness of breath. Denies nausea or vomiting. Patient does take metoprolol, but last dose was taken yesterday. Patient has been eating normally and drinking fluids since procedure. Denies fever
or chills. Denies vomiting or diarrhea.
Past History
Past History
ED Past Medical History: HTN and Hypercholesterolemia
ED Past Surgical History: None
Social History
Tobacco: Non-smoker
Employment: Employed
Review of Systems
Review of Systems
Allergies reviewed?: Yes
All Other Systems: ROS reviewed and negative except as documented in HPI and ROS
Constitutional: Reports no symptoms; Denies fever
Respiratory: Reports no symptoms; Denies trouble breathing
Cardiac: Reports no symptoms; Denies chest pain, palpitations or syncope
ABD/GI: Reports no symptoms; Denies vomiting
Musculoskeletal: Reports no symptoms
Skin: Reports no symptoms
Neurological: Reports no symptoms
Phy Exam
Physical Exam
Physical Exam:
Physical Exam
General: no apparent distress, not acutely ill. afebrile
Head: nc/at. eomi
Neck: supple. no jvd
Heart: irregular, systolic ejection murmur. equal radial pulses.
Lungs: no acute respiratory distress. clear bilaterally
Abdomen: normal bowel sounds. not tender.
Neuro: alert and oriented x 3. no focal neurological deficits
Skin: no rash
Psychiatric: well kept. interactive and cooperative
Extremities: no edema. no calf tenderness.
Course
Orders/Labs/Results
Orders:
Orders
05/20/25 09:20
Electrocardiogram (*1) Urgent
Reason for Study: Abnormal EKG
05/20/25 09:21
EKG- Treatment ONCE
05/20/25 09:37
Complete Blood Count/With Diff Urgent
Comprehensive Metabolic Panel Urgent
Lyme Progressive Urgent
Magnesium Urgent
Troponin I Urgent
05/20/25 09:56
Add On- LAB Urgent
Tests Added?: magnesium, lyme progressive
05/20/25 10:05
Electrocardiogram (*1) Urgent
Reason for Study: Other
Other Reason for Exam: Heart block
EKG- Treatment ONCE
05/20/25 11:58
Admit/Transfer Patient As Directed
Co-Sign Provider:
Level of Care: Observation services
Assign to:: IVU
Physician / Group: Niyah
Diagnosis: AV block s/p TAVR
Reason for Hospitalization: AV block s/p TAVR
PRN Pain Medication Management As Directed
May give lesser potent ordered pain med per pt: Yes
preference::
Protocol:: Medication orders for pain may be administered in a
manner that supports deferring to patient preference
when the pt is:
- Requesting an ordered lesser potent pain medication.
Least to most potent pain medications are defined
as: acetaminophen < NSAID < tramadol < opioids
(morphine, oxycodone, hydromorphone).
- Requesting a lesser dose of the same medication IF
ORDERED.
- Requesting a less intrusive route of administration
if both routes are prescribed by the provider (PO <
IV).
05/20/25 12:01
Code Status As Directed
Resuscitation Status: Full Code
05/20/25 16:19
Acetaminophen [Tylenol] 650 mg PO Q4HPRN PRN
Bisacodyl [Dulcolax] 10 mg RECTAL [id number] PRN
Docusate W/Senna [Senokot-S] 1 tablet PO BIDPRN PRN
Polyethylene Glycol Powder [Miralax] 17 grams PO DAILYPRN PRN
05/20/25 16:19
Activity As Directed
Activity Level: Ambulate
As Tolerated
With Assistance
Pneumatic Compression Sleeves As Directed
Type: Knee high
Vital Signs As Directed
Frequency: Per unit guidelines
Weight As Directed
Frequency: Once
Pulse Ox/spot Check [RESP] Routine
Quantity: 1
Rx Incentive Spirometry [RESP] Routine
Frequency: q1h while awake
DX Deep Vein Thrombosis Video Routine
05/20/25 18:00
Allopurinol [Zyloprim] 300 mg PO QPM
Cyanocobalamin [Vitamin B-12] 1,000 mcg PO QPM
05/20/25 22:00
Rosuvastatin Calcium [Crestor] 20 mg PO HS
05/21/25 05:44
Basic Metabolic Panel IN AM
Complete Blood Count/No Diff IN AM
05/21/25 08:00
Clopidogrel Bisulfate [Plavix] 75 mg PO DAILY
Abnormal Lab Results
05/20/25
09:37
RBC 3.43 L 10^6/uL
(4.70-6.10)
Hgb 12.2 L g/dL
(13.0-18.0)
Hct 35.6 L %
(39.0-52.0)
MCV 103.8 H fL
(80.0-94.0)
MCH 35.6 H pg
(27.0-31.0)
Absolute Neuts (auto) 6.8 H 10^3/uL
(1.4-6.5)
Absolute Monos (auto) 0.7 H 10^3/uL
(0.1-0.6)
Lymphocytes % 15.0 L %
(20.5-51.1)
BUN 26 H mg/dl
(9-20)
Glucose 135 H mg/dl
(70-99)
Troponin I 0.076 H* ng/ml
05/20/25 09:37
05/20/25 09:37
Vital Signs
Initial and Last Documented VS:
Initial Vital Signs
Temp Pulse Resp BP Pulse Ox
98.4 F 72 18 131/77 92
05/20/25 09:17 05/20/25 09:17 05/20/25 09:17 05/20/25 09:17 05/20/25 09:17
Last Documented Vital Signs
Temp Pulse Resp BP Pulse Ox
97.7 F 87 18 107/72 100
05/21/25 07:03 05/21/25 08:15 05/21/25 07:03 05/21/25 08:15 05/21/25 07:15
MDM/Problems Addressed
MDM/Problems Addressed:
History and exam concerning for high degree AV block versus complete heart block. Fortunately, patient is afebrile, hemodynamically stable, and without any symptoms, i.e. dizziness/shortness of breath/chest pain.
Patient will be admitted for further eval and treatment, including evaluation for potential pacemaker placement.
ZOLL pads placed on the patient.
*Pulse Oximetry
SaO2: 92
Oxygen Mode of Delivery: Room air
Patient hypoxic: no
*Critical Care Note
Total Time (30-74mins, 75-104mins- exclusive of procedures): Not Applicable
ED Attending Note
-
Portions of this chart may have been created with voice recognition software.� Occasional wrong word or��sound alike� substitutions may have occurred due to the inherent limitations of voice recognition software.
Discharge Plan
Departure
Patient Disposition: Admit
Date of Disposition: 05/20/25
Time of Disposition: 10:22
Admit to: IMU
Presentation/result/management discussed w/ accepting MD/DO: Hospitalist
Discharge Problem:
AV heart block
Interventions
Interventions:
*Risk Screen - Suicide Last Done: 05/20/25 09:17
*General Assessment Last Done: 05/20/25 09:17
*Neglect/Abuse Screening Last Done: 05/20/25 09:17
*ED- Fall Risk Assessment Last Done: 05/20/25 10:17
*ED COVID-19 Vaccine History Last Done: 05/20/25 16:44
*Nursing Disposition Last Done: 05/20/25 14:32
ED- Pulmonary Assessment Last Done: 05/20/25 10:17
ED- Cardiac Assessment Last Done: 05/20/25 10:17
Discharge Date and Time
Discharge Date/Time: 05/20/25 14:32
[2025-05-20 10:21] LABS: Troponin I 0.076 ng/ml
--- NOTE | 2025-05-20 10:35 | W.PN.CARDCBS ---
Addendum entered and electronically signed by Sherman Linder DO 05/20/25 13:41:
I saw and examined the patient.
The Core Feeder's note was reviewed and I agree with the note.
Comment:
Plan:
Patient presenting with asymptomatic significant first-degree block new left bundle branch block, PVCs.
Concern with recent TAVR for advancing conduction disease.
Initially discussed holding beta-staci and admitting for further observation, after discussion with electrophysiology and review of telemetry, patient appears appropriate for permanent pacemaker placement.
Continue to hold beta-staci
Discussed with at bedside
Discussed with emergency room
Discussed with electrophysiology
Original Note:
Today's Communication / Plan
-
admit for tele observation, will review with EP
hold toprol
Impression / Plan
-
Please see office note dated 05/20/25
Primary Prosthetic Makeup Designer: Dr. Guadarrama
Assessment:
- Presentation with AV block, asymptomatic
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
- Mild mitral regurgitation
- History of TIA
- Femoral fracture s/p ORIF 2011
- OA
- Hypertension
- Hyperlipidemia
- BPH
- Impaired fasting glucose
- Prostate CA
ECHO 03/18/2025: EF 53 to 60%, mild LVH, mild MR, severe with peak/mean gradients 59/33 mmHg, JOSE CRUZ 0.7 cm�, normal right heart
Echo 05/13/2025: EF 55 to 60%, status post 29 mm Hopkins ERINN TAVR with mean gradient 3 mmHg, no significant regurg
ECHO 05/14/25: EF 58%, mild cLVH, s/p #29 Hopkins ERINN TAVR with peak/mean gradients of 15/8mmHg, no paravalvular leak, no pericardial effusion
Plan:
- Patient presents with cardiology office due to asymptomatic conduction disease noted on EKG 1 week post TAVR.
- EKGs appear to be most consistent with SR with marked 1st degree av block and PVCs. patient asymptomatic. will review with EP
- admit for observation and follow on tele
- hold OP toprol, last dose 05/19 AM
- echo post TAVR on 05/14 with TAVR well seated, no paravalvular leak
- on plavix as OP, did not take yet this AM
- discussed may require PPM with patient and at bedside
- discussed with ER physician
Progress Note - Prosthetic Makeup Designer
Subjective
Date of Service: May 20, 2025
no complaints
Objective
Labs:
05/20/25 09:37
05/20/25 09:37
Labs
Hgb 12.2 g/dL (13.0-18.0) L 05/20/25 09:37
Hct 35.6 % (39.0-52.0) L 05/20/25 09:37
Plt Count 164 10^3/uL (130-400) D 05/20/25 09:37
Sodium 138 mmol/L (135-145) 05/20/25 09:37
Potassium 3.8 mmol/L (3.5-5.1) 05/20/25 09:37
BUN 26 mg/dl (9-20) H 05/20/25 09:37
Creatinine 1.0 mg/dL (0.7-1.3) 05/20/25 09:37
Glucose 135 mg/dl (70-99) H 05/20/25 09:37
Troponins
05/20/25
09:37
Troponin I 0.076 H*
Vital Signs and I&O:
Vital Signs
Temp Pulse Resp BP Pulse Ox
98.4 F 67 16 98/71 98
05/20/25 09:17 05/20/25 10:15 05/20/25 10:15 05/20/25 10:00 05/20/25 10:17
Vital Signs
Temp Pulse Resp BP Pulse Ox
98.4 F 67 16 98/71 98
05/20/25 09:17 05/20/25 10:15 05/20/25 10:15 05/20/25 10:00 05/20/25 10:17
Physical Exam
Physical Exam
GEN: No distress, awake, alert, oriented x3
HEENT: supple, anicteric, mmm, eomi
LUNGS: CTA B/L, no wheezes/rales
CV: Reg with ectopy, S1/S2, 1/6 syst LSB
ABD: soft, BS+, NT/ND
EXT: No cyanosis, clubbing, edema
NEURO: Gross non-focal
SKIN: Warm, pink, dry. No rash. B/L groin sites soft, NTTP.
[2025-05-20 11:48] LABS: Magnesium 1.8 mg/dl (1.6-2.3)
--- NOTE | 2025-05-20 14:19 | W.PN.UPDATE ---
Update Note
Progress Note Update
after discussion with EP and TAVR team, plan for PPM placement today. NPO. discussed with patient and he is agreeable to proceed. also discussed with patient's via telephone, she is at home. is not planning to come back to hospital today, but
states will come tomorrow.
[2025-05-20 14:56] LABS: Lyme Antibody Screen, EIA Negative (Negative)
--- NOTE | 2025-05-20 16:20 | ITS.CL.PACE ---
[employer] Technical Lead Senior Developer - Pacemaker Implant
Pacemaker Implant
Procedure Report:
Left Bundle Branch pacing dual chamber Permanent Pacemaker Placement:
Mr. Raza is an 85-year-old gentleman with history of PVC with severe As s/p s/p R TF TAVR 29 mm ERINN 3 Resilia valve 05/13/25 with h/o HTN, mild MR, TIA, prostate CA, HPL who had developed severe conduction disease and AV block and is in need for
a pacemaker.
Indications:
High degree heart block.
Date of the Procedure: 05/20/25
Pre-Operative Diagnosis: Advanced heart block
Post-Operative Diagnosis: Advanced heart block
Procedure Performed: LEFT BUNDLE BRANCH PACING WITH DUAL CHAMBER PERMANENT PACEMAKER IMPLANTATION.
Performing physician:
Kia Aranda MD
Anesthesia:
See anesthesia records
Detailed Description of the Procedure:
The patient was identified using hospital identification and informed consent obtained for the procedure. The risks were explained to the patient and the family including, but not limited to: Bleeding, infection, arrhythmia, stroke,
vascular/cardiac/lung puncture, surgery, pacemaker dependency/device malfunction. All questions were answered.
Anesthesia service provided sedation as reported separately. Antibiotics administered IV for risk of bacterial colonization. After obtaining informed and written consent, the patient was brought to the electrophysiology laboratory.
The initial rhythm was sinus rhythm with intermittent heart block with long 1st degree AV conduction and frequent PVCs.
A timeout was performed immediately before the procedure. The left chest was prepped from the nipple to the angle of the jaw with chlorhexidine, and draped following sterile technique in usual routine.�
A surgical pause and time out was performed immediately prior to the procedure with review of her medical history, recent labs, allergies and medications with site of procedure identified and consent noted in the chart. Antibiotics pre operatively
given. All team members concurred.
The procedure site was meticulously prepared with surgical scrub and allowed to dry with no pooling. Sterile draping was applied to cover the procedure site. The image intensifier was draped with sterile bag and positioned over the patient.
The left infraclavicular region was prepped and draped in the usual sterile fashion. Local anesthesia was administered subcutaneously using 1% lidocaine / Bupivacaine. The left cephalic vein cutdown was done and guide wires were advanced to the
inferior vena cava (IVC) under flouro guidance.
A subcutaneous pocket was created with blunt dissection and use of electrocautery. Hemostasis was excellent.
Attention then was turned to the left bundle branch pacing lead. The guide wire was advanced to the RA and was advanced to the RV. The preformed curved long hemostatic peel away HIS sheath was advanced into the RV cavity. A left bundle pacing wire
was advanced into the sheath to the tip with ventricular signals noted with unipolar manner. The sheath with the pacing lead was moved deeper into the RV cavity from the HIS location on the septum at a more inferior and distal to the HIS signals
based on the aortic valve location.
Once adequate signals were noted on the electrograms of the pacing lead in the sheath with W pattern signals on the RV septum, the lead was advanced and clockwise turns were done under fluoroscopic guidance. The septum was engaged and the lead was
paced intermittently after every 2-3 turns. The Impedance of the lead was measured that remained stable around 700 Ohm and the lead was not able to advance into the septum. The ventricular capture was monitored throughout and the captures gradually
changed from RV pacing to non-selective pacing to LBB pacing with R wave on V1.
With RBBB pattern noted on the pacing lead, it was decided to accept the location as optimal location. The long guiding sheath was cut and removed from the RV without change in lead position, impedance, sensing, or capture. The lead was sutured to
the underlying pectoralis fascia with 2-0 Ethibond stitches.
The RA lead was anchored in the right atrial appendage with engaging the active-fixation apparatus. There was excellent sensing, pacing, and impedance from the leads, with no diaphragmatic stimulation at 10 V output.�Bovie cautery, antibiotics, and
fluoroscopy were used.
The leads were attached to the pulse generator in standard configuration with acceptable sensing and threshold parameters. The pocket was irrigated with antibiotic solution; the pocket was inspected with no active bleeding noted. The device and the
leads were placed in the pocket.
A Tyrx pouch was placed around the device and the leads.
Deep subcutaneous tissues were closed with 3 layers of 2-0V loc sutures; and the dermis was reopposed using a running 4-0 Monocryl subcuticular suture. Sponge counts / sharp counts were appropriate.
Procedure End:
The procedure was tolerated well. Aquacel bandaged was applied. A pressure dressing was applied.
Estimated Blood loss:
5 cc
Specimens Removed:
No cultures and no specimens were obtained. No intraoperative pathology was identified.
Urine output:
None
Packs / Drains/ Tubes:
None
Instrument / Sponge Count Correct:
Yes
Complications of the Procedure:
None
Condition of Patient at Time of Transfer:
Hemodynamically stable with no neurological or vascular compromise.
Device information:�
Generator: SynapDx; Model: W1DR01; Serial # [id number]�
Atrial Lead: SynapDx; Model: 5076-52; Serial # [id number]
Measured data in the right atrium was sensing of 1.8 mV, impedance of 532 ohms and threshold of 1.0 V at 0.4ms�
LBB pacing lead: SynapDx; Model: 3830-69; Serial # [id number]
Measured data on the RV lead was sensing of 10.3mV, impedance of 608 ohms and threshold of 0.75V at 0.4ms
PROGRAMMING PARAMETERS:�
Néstor parameter settings were DDDR 70-130 �
����������� Paced AV interval: 180ms
����������� Sensed AV interval: 150 ms.
����������� Rate Adaptive A-V Interval: off
����������� Mode switch ON
�
Summary:
Successful implantation of MRI compatible LBB pacing dual chamber pacemaker.
Results/Recommendations:
1.Please follow up CXR�
2. Please provide patient with adequate pain control�
3. Pacing rate is set at 70 bpm to suppress PVCs. Rate can be reduced as needed.
4. Increase Metoprolol to suppress ventricular ectopy.
Instructions to be given to patient:�
- Please follow up with [facility] to get your wound checked in 2 weeks of your discharge. Then follow with
- Do not wet incision site until after it is evaluated at cardiology clinic. No baths or showers until then. Sponge baths / showers are OK but dab dry the dressing after it is wet.�
- Allow 'steri strips' to fall off on their own�
- Do not lift left elbow above shoulder, particularly with sudden jerking movements, for 1 month�
- Do not lift anything weighing more than 5 pounds with the left arm for 1 month�
- If you notice any fevers, shortness of breath, lightheadedness, chest pain, or worsening swelling in the wound site, please contact the arrhythmia clinic, contact your wire drawing machine tender, or present to the hospital for evaluation.�
Kia Aranda MD
Electrophysiology
[2025-05-20] MEDS: TYLENOL 650 MG PO (16:45)
[2025-05-20] MEDS: VITAMIN B-12 1000 MCG PO (16:46)
[2025-05-20] MEDS: ZYLOPRIM 300 MG PO (16:46)
--- NOTE | 2025-05-20 17:17 | PTCARENOTE ---
Received pt from lab s/p PPM setting DDDR 70-130. Pt is AAOx3 A/V paced on the monitor with frequent PVC's. PT c/o h/a Tylenol po given. Left cw pacer site Aquacel dressing c/d/i left arm immobilizer in place. Call hernandez within reach.
[2025-05-20] MEDS: ROXICODONE 5 MG PO (20:03)
[2025-05-20] MEDS: TOPROL XL 25 MG PO (20:04)
[2025-05-20 20:12] LABS: Glucose - Point of Care 146 mg/dl (70-99)
[2025-05-20] MEDS: MAALOX PLUS 1 TABLET PO (20:51)
[2025-05-20] MEDS: TIGAN 200 MG IM (20:56)
--- NOTE | 2025-05-20 21:35 | PTCARENOTE ---
Received pt in bed at 1900, pt c/o pressure to L chest area, frequent dry cough and 'not feeling good'. Bp 130/70's,Hr 80, Pox 96% RA,T 98.0. At approx 1950, pt became diaphoretic, pale, c/o pain 5-6/10 from left chest and feeling nauseated. O2
applied at 2L via NC. GLADIS Aquacel dressing intact with scant drainage in center, marked. No swelling or bruising noted around dressing. Immobilizer in place on Left arm. call center support consultant CT PA made aware, Oxy 5 mg, Tigan and Maalox ordered and given, no
relief noted. blood sugar 146. EKG obtained and reviewed by PA and cardiology.
[2025-05-20 21:37] LABS: Glucose - Point of Care 169 mg/dl (70-99)
[2025-05-20] MEDS: ANCEF 5 IV (21:44)
[2025-05-20 21:52] LABS: Hematocrit 36.9 % (39.0-52.0); Hemoglobin 12.4 g/dL (13.0-18.0); Mean Corp Hgb Conc. 33.6 g/dL (33.0-37.0); Mean Corpuscular Volume 103.7 fL (80.0-94.0); Platelet Count 175 10^3/uL (130-400); Red Cell Dist. Width 13.4 % (11.5-14.5)
[2025-05-20] MEDS: NSS 500 IV (21:56)
[2025-05-20 22:00] LABS: Blood Urea Nitrogen 23 mg/dl (9-20); Calcium 9.0 mg/dl (8.4-10.2); Carbon Dioxide 20 mmol/L (22-30); Chloride 106 mmol/L (98-107); Estimated Creatinine Clearance 53 ml/min; Glucose 172 mg/dl (70-99); Magnesium 2.0 mg/dl (1.6-2.3); Potassium 4.4 mmol/L (3.5-5.1); Sodium 136 mmol/L (135-145); eGFR > 60.00
[2025-05-20 22:13] LABS: Troponin I 0.381 ng/ml
[2025-05-20] MEDS: LR 500 IV (22:29)
[2025-05-20] MEDS: CRESTOR PO (22:50)
--- NOTE | 2025-05-20 22:50 | W.PN.CARDCBS ---
Today's Communication / Plan
-
Patient presents with hypotension and new moderate to severe circumferential pericardial effusion status post pacemaker placement today.
Continue aggressive IV fluids and will use IV pressors if needed.
Plan for urgent pericardiocentesis/drain due to hemodynamic compromise.
Impression / Plan
-
Please see office note dated 05/20/25
Primary Brand Marketing Specialist: Dr. Guadarrama
Assessment:
- hypotension, new pericardial effusion with tamponade
- Presentation with AV block, asymptomatic s/p permament pacemaker 05/20
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
- Mild mitral regurgitation
- History of TIA
- Femoral fracture s/p ORIF 2011
- OA
- Hypertension
- Hyperlipidemia
- BPH
- Impaired fasting glucose
- Prostate CA
ECHO 03/18/2025: EF 53 to 60%, mild LVH, mild MR, severe with peak/mean gradients 59/33 mmHg, JOSE CRUZ 0.7 cm�, normal right heart
Echo 05/13/2025: EF 55 to 60%, status post 29 mm Hopkins ERINN TAVR with mean gradient 3 mmHg, no significant regurg
ECHO 05/14/25: EF 58%, mild cLVH, s/p #29 Hopkins ERINN TAVR with peak/mean gradients of 15/8mmHg, no paravalvular leak, no pericardial effusion
Plan:
- Patient presented today with new left bundle branch block and marked first-degree AV block status post TAVR 1 week ago. A permanent pacer was placed today.
- Tonight starting around 9 PM he started having severe chest discomfort and hypotension.
- Urgent echo revealed preserved LVEF with stable #29 Hopkins TAVR with no significant aortic regurgitation but a new moderate to severe circumferential pericardial effusion with signs of hemodynamic compromise
- Plan will be to proceed with urgent pericardiocentesis.
- Suspect possible lead perforation during pacemaker.
- Coding Clerk team called in and will continue supportive care until pericardiocentesis
-CC time 35 min. Discussed with nursing, PA and interventional team.
Progress Note - Brand Marketing Specialist
Subjective
Date of Service: May 20, 2025
Called to see patient tonight around 9 PM due to moderate to severe chest pains, nausea, and sweats. Patient had episode of vomiting and was having moderate to severe substernal chest tightness. Blood pressure dropped to 80 systolic he was given
IV fluids 250 cc x 2. He was given Tigan for nausea but continued to have nausea and chest tightness. Urgent echo was performed which revealed preserved ejection fraction and new moderate to severe pericardial effusion.
Objective
Labs:
05/20/25 21:36
05/20/25 21:36
Labs
Hgb 12.4 g/dL (13.0-18.0) L 05/20/25 21:36
Hct 36.9 % (39.0-52.0) L 05/20/25 21:36
Plt Count 175 10^3/uL (130-400) 05/20/25 21:36
Sodium 136 mmol/L (135-145) 05/20/25 21:36
Potassium 4.4 mmol/L (3.5-5.1) 05/20/25 21:36
BUN 23 mg/dl (9-20) H 05/20/25 21:36
Creatinine 1.0 mg/dL (0.7-1.3) 05/20/25 21:36
Glucose 172 mg/dl (70-99) H 05/20/25 21:36
Troponins
05/20/25 05/20/25
09:37 21:36
Troponin I 0.076 H* 0.381 H*
Vital Signs and I&O:
Vital Signs
Temp Pulse Resp BP Pulse Ox
98.3 F 84 18 83/65 99
05/20/25 19:09 05/20/25 21:15 05/20/25 19:09 05/20/25 21:00 05/20/25 21:15
Vital Signs
Temp Pulse Resp BP Pulse Ox
98.3 F 84 18 83/65 99
05/20/25 19:09 05/20/25 21:15 05/20/25 19:09 05/20/25 21:00 05/20/25 21:15
Intake & Output
05/18/25 05/19/25 05/20/25 05/21/25
06:59 06:59 06:59 06:59
Output Total 250 / 250
Balance -250 / -250
Physical Exam
Physical Exam
GEN: anxious. mod distress
HEENT: supple, anicteric, mmm
LUNGS: scatt rhonchi
CV: Reg, tachy, S1/S2, 1/6 syst LSB, no rub
ABD: soft, BS+, NT/ND
EXT: No edema
NEURO: Gross non-focal
SKIN: No rash
--- NOTE | 2025-05-20 23:28 | ITS.CL.PN ---
Shoemaker Apprentice - Procedure Note
Procedure
Procedure Note:
CARDIAC CATHETERIZATION REPORT
Date of Procedure: 05/20/2025
Referring: Dr. Anuradha Kessler MD
Indication: tamponade
PROCEDURE: pericardiocentesis
ACCESS: 6F sub-xyphoid
CATHETERS: 6F pigtail
MODERATE SEDATION: 30 minutes of moderate sedation was utilized. An independent medical assistant was present to assist with and help manage the patient's level of consciousness and physiologic status.
PROCEDURE DESCRIPTION: Using a micropuncture needle with echo and fluoroscopic guidance, a BMW coronary wire was advanced into the pericardial space and verified to curl throughout the cardiac silhouette without ectopy. Over the BMW wire, a 4F
sheath was advanced and bubble study performed demonstrating bubbles confined to the pericardial space. The tract was dilated with an 6F dilator, followed by placement of a 6F pigtail. Pericardial pressure was measured at 19 mmHg. 180 cc of anuradha
blood (Hb 13 on blood gas) was drained. The patient tolerated the procedure well. The drain was sutured in place and left to suction.
CONCLUSIONS & RECOMMENDATIONS
1. leave drain in place for 12-24 hours. If fluid accumulating at <50cc per 24 hours and no reaccumulation of effusion on echo, can pull drain with another repeat echo 24 hours after that.
2. narcotics for pain relief while drain in place
Signed: Mohan Holliday MD, PhD
[2025-05-21] VITALS (71 sets, daily range): BP systolic 72–125; BP diastolic 37–89; BMI 20.1
[2025-05-21] MEDS: DILAUDID 0.25 MG IV ×2 (01:05→05:55)
--- NOTE | 2025-05-21 01:35 | PTCARENOTE ---
At 2130, pt had large emesis of undigested food, continued to be diaphoretic, no relief on chest pressure/pain. BP dropping with systolic on the 80's. Cardiology made aware by CT PA, Echo done at bedside and resulting with new moderate to severe
circumferential pericardial effusion. Pt to labor specialist for pericardiocentesis, back to room at 0100. Vacutainer drain to mid chest intact. VSS. pt c/o pain 10/10, dilaudid .25 givien. Call hernandez within reach.
[2025-05-21] MEDS: ROXICODONE 10 MG PO (02:35)
[2025-05-21] MEDS: ANCEF 5 IV ×2 (05:55→21:34)
[2025-05-21 06:03] LABS: Hematocrit 36.5 % (39.0-52.0); Hemoglobin 12.4 g/dL (13.0-18.0); Mean Corp Hgb Conc. 34.0 g/dL (33.0-37.0); Mean Corpuscular Volume 105.5 fL (80.0-94.0); Platelet Count 162 10^3/uL (130-400); Red Cell Dist. Width 13.2 % (11.5-14.5)
[2025-05-21 06:29] LABS: Troponin I 0.259 ng/ml
--- NOTE | 2025-05-21 07:21 | PTCARENOTE ---
Mid chest drain intact, drained 300cc sanguineous fluid. Pt stating that is feeling better this morning, VSS. Dilaudid .25 mg given for some chest discomfort and headache.
[2025-05-21 07:39] LABS: Blood Urea Nitrogen 30 mg/dl (9-20); Calcium 9.2 mg/dl (8.4-10.2); Carbon Dioxide 24 mmol/L (22-30); Chloride 107 mmol/L (98-107); Estimated Creatinine Clearance 48 ml/min; Glucose 170 mg/dl (70-99); Magnesium 2.0 mg/dl (1.6-2.3); Potassium 4.5 mmol/L (3.5-5.1); Sodium 140 mmol/L (135-145); eGFR > 60.00
--- NOTE | 2025-05-21 08:37 | W.PN.CARDCBS ---
Addendum entered and electronically signed by Cresencio Wan MD 05/21/25 14:16:
85-year-old man with history of TAVR May 2025, underwent pacemaker implantationFor heart block and new left bundle branch block 05/1825 with subsequent pericardial effusion that required drain, 180 mL of blood with subsequent 400 mL of blood,
now for repositioning of atrial lead
PMH/PSH: KADY May 2025, gout, ORIF right femur, hyperlipidemia, prior TIA, prostate cancer
Medications: Clopidogrel 75 mg a day on hold, allopurinol, vitamin B12, rosuvastatin 20 mg a day, metoprolol ER 25 mg daily
107/72, pulse 87, respiratory rate 18, afebrile, weight is unchanged 70 kg, head neck exam unremarkable, relatively frail, lungs are clear, drain in place, soft systolic murmur, no edema
White count is 23.2, hemoglobin is 12.4, BUN 30, creatinine 1.1
Impression:
AV block with left bundle branch block following TAVR, s/p Medtronic permanent pacemaker 05/20
Pericardial effusion status post drain 05/20/2025, suspected atrial lead perforation
Severe symptomatic s/p R TF TAVR 29 mm ERINN 3 Resilia valve 05/13/25
Mild mitral regurgitation
History of TIA
Femoral fracture s/p ORIF 2011
OA
Hypertension
Hyperlipidemia
Prostate CA
Other diagnoses as below. Reviewed in detail and agree unless otherwise specified.
Plan:
Despite his pericardial effusion and need for pericardiocentesis, he is hemodynamically stable with a drain in place and is comfortable. Presumably based on lead threshold etc., and appearance on CT scan atrial lead is the likely culprit, for
revision of right atrial lead later this afternoon.
Plavix is on hold. EP and CT surgery have reviewed.
Further management to be based upon results of his revision.
Original Note:
Today's Communication / Plan
-
Interrogate device
Monitor pericardial drain output
OP plavix on hold
Impression / Plan
-
Please see office note dated 05/20/25
Primary Fraud Analyst: Dr. Guadarrama
Assessment:
- hypotension, new pericardial effusion with tamponade s/p pericardiocentesis 05/20/25
- Presentation with AV block, asymptomatic s/p Medtronic permanent pacemaker 05/20
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
- Mild mitral regurgitation
- History of TIA
- Femoral fracture s/p ORIF 2011
- OA
- Hypertension
- Hyperlipidemia
- BPH
- Impaired fasting glucose
- Prostate CA
ECHO 03/18/2025: EF 53 to 60%, mild LVH, mild MR, severe with peak/mean gradients 59/33 mmHg, JOSE CRUZ 0.7 cm�, normal right heart
Echo 05/13/2025: EF 55 to 60%, status post 29 mm Hopkins ERINN TAVR with mean gradient 3 mmHg, no significant regurg
ECHO 05/14/25: EF 58%, mild cLVH, s/p #29 Hopkins ERINN TAVR with peak/mean gradients of 15/8mmHg, no paravalvular leak, no pericardial effusion
Plan:
- Patient presented today with new left bundle branch block and marked first-degree AV block status post TAVR 1 week ago. A permanent pacer was placed 05/20/25
- Developed hypotension and chest pain around 9 PM 05/20
- Urgent echo showed preserved EF with stable TAVR valve but new moderate to severe circumferential pericardial effusion with signs of hemodynamic compromise and patient underwent urgent pericardiocentesis for 180cc with placement of pericardial
drain
- as remains with ~300 cc output overnight by drain, would leave drain in place today
- concern for lead perforation during pacemaker - interrogate device this AM. will have EP follow, may require lead revision
- holding OP plavix given above
- mostly asensed vpaced on review of tele with frequent PVCs at times in pattern of bigeminy. continue toprol with hold parameters
Progress Note - Fraud Analyst
Subjective
Date of Service: May 21, 2025
Feeling well overall this morning. Reports some discomfort with deep breathing
Objective
Labs:
05/21/25 05:44
05/21/25 05:44
Labs
Hgb 12.4 g/dL (13.0-18.0) L 05/21/25 05:44
Hct 36.5 % (39.0-52.0) L 05/21/25 05:44
Plt Count 162 10^3/uL (130-400) 05/21/25 05:44
Sodium 140 mmol/L (135-145) 05/21/25 05:44
Potassium 4.5 mmol/L (3.5-5.1) 05/21/25 05:44
BUN 30 mg/dl (9-20) H 05/21/25 05:44
Creatinine 1.1 mg/dL (0.7-1.3) 05/21/25 05:44
Glucose 170 mg/dl (70-99) H 05/21/25 05:44
Troponins
05/20/25 05/20/25 05/21/25
09:37 21:36 05:44
Troponin I 0.076 H* 0.381 H* 0.259 H*
Vital Signs and I&O:
Vital Signs
Temp Pulse Resp BP Pulse Ox
97.7 F 87 18 107/72 100
05/21/25 07:03 05/21/25 08:15 05/21/25 07:03 05/21/25 08:15 05/21/25 07:15
Vital Signs
Temp Pulse Resp BP Pulse Ox
97.7 F 87 18 107/72 100
05/21/25 07:03 05/21/25 08:15 05/21/25 07:03 05/21/25 08:15 05/21/25 07:15
Intake & Output
05/19/25 05/20/25 05/21/25 05/22/25
07:59 07:59 07:59 07:59
Intake Total 1000 / 1000
Output Total 550 / 550
Balance 450 / 450
Physical Exam
Physical Exam
GEN: No distress, awake, alert, oriented, x3
HEENT: supple, anicteric, mmm
LUNGS: CTA bilaterally, no wheezes/rales
CV: Reg, S1/S2, 1/6 syst LSB
ABD: soft, BS+, NT/ND
EXT: No cyanosis, clubbing, edema
NEURO: Gross non-focal
SKIN: Warm, pink, dry. No rash. Left chest Aquacel dressing with mild amount of dried blood noted. No significant swelling or tenderness to palpation
--- NOTE | 2025-05-21 11:52 | W.PN.UPDATE ---
Addendum entered and electronically signed by Kevin Landry DO 05/21/25 13:51:
I spoke with patient and family at bedside. We discussed device implantation and lead revision. Regarding pacemaker implant and lead revision, we discussed pacemaker indications and device implant in detail. For implant there is an approximate
1:1000 risk of IN/stroke/ and a 1% risk of pneumothorax/tamponade/infection/bleeding. We also discussed post procedure implant restrictions including positions to avoid with implant arm for first six weeks after implant as well as driving
restrictions. I discussed with CT surgery as well and plan is for a noncontrast CT scan to determine lead positioning prior to the procedure. With patient and family, we discussed possibility of removal of lead and complications which could
include worsening pericardial effusion requiring surgery. Patient and family verbalized understanding and agreed with this plan. Consent signed for atrial lead revision, patient remains NPO. Patient to go for CAT scan today to better assess lead
positioning as recommended by CT surgery. Blood and blood products on hold with blood bank. Will plan to have ultrasound at bedside. I took time to answer all questions.
Original Note:
Update Note
Progress Note Update
device interrogation showed elevated atrial threshold. plan to return to bed laborer today for possible lead revision. CXR 05/21 showed leads in expected locations of RA and RV, no PTX. d/w CT surgery and plan for noncon CT chest to determine lead
positioning prior to case. updated patient and family at bedside. d/w nursing
[2025-05-21] MEDS: TOPROL XL PO (12:13)
--- NOTE | 2025-05-21 14:20 | CM ---
pt recently here fpor TAVR, known to cm. lives with in a 2 story home with 1 step to enter. plan is for dc to home when medically stable.
--- NOTE | 2025-05-21 14:34 | PTCARENOTE ---
Assumed care of the pt @ 0700. Pt is AAOx3 A/V Paced on the monitor BP stable. Pericardial drain - sanguinous/ serosang drainage. L CW pacer site dressing with sm amt bloody drainage. NPO for procedure. POC discussed with pt and family. Call hernandez
within reach.
--- NOTE | 2025-05-21 14:39 | PTCARENOTE ---
Pt transferred to EPS lab for Lead Revision.
--- NOTE | 2025-05-21 14:39 | ITS.CL.PACE ---
Microbiology Analyst - Pacemaker Implant
Pacemaker Implant
Procedure Report:
Primary Care Doctor: Dr Stacie Black
Primary Picking Tech: Dr Silvio Guadarrama
Procedure Date: 05/21/2025
Name of procedure:
1. Right atrial lead revision
2. Removal of right atrial lead
3. Placement of right atrial lead
4. Removal of right ventricular LBBAP lead
5. Placement of right ventricular LBBAP lead
History:
1. Patient is a pleasant 85-year-old male with a past medical history significant for history of TIA, femoral head fracture, OA, hypertension, hyperlipidemia, prostate cancer, symptomatic severe aortic stenosis status post TAVR 05/13/2025
complicated by complete heart block status post dual-chamber pacemaker placed 05/20/2025 complicated by pericardial effusion/cardiac tamponade with likely right atrial lead perforation.
2. Please refer to H&P for complete history.
Indication:
Right atrial lead perforation
Pericardial effusion/cardiac tamponade
Increasing right atrial lead pacing/sensing values
Methods:
After informed consent was obtained, the patient was brought to the EP laboratory in a postabsorptive, nonsedated state. Peripheral IV access was established. Prophylactic antibiotics were administered prior to incision. Continuous ECG, blood
pressure, and pulse oximetry were initiated. Cardioversion patch electrodes were placed on the patient's chest and back. A grounding patch was applied to the skin. Sedation was administered by anesthesia services.
The left chest was prepared and draped in a sterile fashion. A time-out was performed. Local anesthesia was injected in the subcutaneous tissue in the infraclavicular area at the site of prior incision. Cut was made along the incision and prior
suture was removed. Subcutaneous pocket was exposed. The generator was removed from the pocket and placed aside in an antibiotic wrapped gauze. The leads were inspected and free of defect. The lead sutures were removed from suture sleeves and the
leads were freed from sutures within the pocket. The sutures were removed. Under fluoroscopic guidance a venipuncture was made using micropuncture and modified Seldinger technique. These were performed in the extrathoracic portion of the subclavian
vein. Guidewire was passed a peel-away sheath was placed and used to advance lead into the circulation.
The right atrial passive lead was positioned in the right atrial appendage. Adequate sensing and pacing parameters were found, and no diaphragmatic stimulation was seen with high-output pacing. The sheath was split and the lead was secured to the
fascia with Ethibond ties. Next, a straight stylet was advanced into the lumen of the chronic right atrial active fix lead. CT surgery was notified and available in control room. With careful monitoring of rhythm, vital signs, and drain output, the
active fix screw was retracted. Using gentle traction, the lead was removed from circulation. During retraction, the chronic RV dislodged. A purse string suture was placed around the venotomy site for chronic leads and the chronic RV lead was
removed. Patient's vital signs remained stable and unchanged. Next, a venipuncture was made using micropuncture and modified Seldinger technique. This was performed in the extrathoracic portion of the subclavian vein. Guidewire was passed and
peel-away sheath was placed and used to advance lead into the circulation.
Fluoroscopy was used to determine likely anatomic site for left bundle branch pacing. The Medtronic C315 sheath was used to deliver the previously removed and replaced Medtronic 3830 Selectsecure pacing lead with the helix exposed just exposed from
the sheath tip during continuous monitoring when pacemapping the septum during gentle clockwise rotation to obtain a paced QRS morphology of a W pattern in lead V1. Once the suspected optimal site was identified, lead deployment was performed with
several rapid rotations as paced QRS morphology was intermittently monitored until a paced QRS complex in lead V1 demonstrated development of an R wave (qR or rSR). Unipolar pacing impedance dropped by approximately 100-200 ohms suggesting it had
reached the left ventricular subendocardial. Stable VEgm injury current is present throughout lead position and at end of case. Final unipolar pacing impedance is 760 Ohms. Unipolar pacing threshold is stable at 1.0 V @ 0.4 ms. The patient had
pre-existing left bundle branch block at baseline. Final conduction system paced QRS complex duration is 108 ms, LVAT is 67 ms, and peak V5 -> peak V1 timing is 53 ms. The C315 sheath was slit under fluoroscopy ensuring lead position and stability.
The short sheath was then split and the RV lead was sutured to the fascia. A pursestring suture was placed around the venotomy site for the new leads.
The pocket was flushed with antibiotic solution and hemostasis was assured. The generator was connected to the leads and placed inside the pocket. The device was sutured to the fascia. Antibiotic envelope was used. Floseal was applied. The wound
was closed with 3 running layers of absorbable suture, and steri-strips were applied. Dressing applied over steri-strips in standard fashion.
Following the procedure, the patient was taken to the recovery area in stable condition. A chest x-ray to be obtained post procedure as routine.
Lead parameters and device programming:
- RA Lead (Medtronic, Model 4574, #[id number]): Sensing 1.5 mV, Pacing threshold 0.4 V at 0.4 ms, Imp 570 ohm
- RV Lead (Medtronic, Model 3830, # [id number]): Sensing 10.2 mV, Pacing threshold 0.6 V at 0.4 ms, Imp 703 ohm
- Device: Medtronic, Model W1DR01 pacemaker (# [id number]), programmed DDDR, mode switch on, low rate 70, upper tracking 130 ppm
Conclusions:
1. Successful right atrial lead revision
2. Removal of right atrial lead
3. Placement of right new atrial lead
4. Removal of right ventricular LBBAP lead
5. Placement of right ventricular LBBAP lead
Recommendations:
- Return to patient room
- Chest x-ray tonight, [facility] in AM.
- IV antibiotics while the patient is admitted.
- OK to resume home medications as indicated
- Pressure dressing to be removed in AM, aquacell to remain until wound check
- Follow-up will be arranged in the office in 7-10 days post-discharge for incision check
Kevin Landry DO, FAC, RS
Clinical Cardiac Chaplain
cc: Dr Stacie Black; Dr Silvio Guadarrama
--- NOTE | 2025-05-21 17:44 | PTCARENOTE ---
Pt returned from Lead Revision procedure BP 74/47. Dr Landry notified and at bedside. Ordered Stat Echo and 500 ml bolus NS. Pt is sleeping but easily awakens family at bedside.
--- NOTE | 2025-05-21 18:00 | W.PN.UPDATE ---
Update Note
Progress Note Update
Called to bedside by nursing following procedure. Patient's BP 74/47. Patient without complaint with mild somnolence from anesthesia. Easily arousable. Patient endorsing no chest pain, shortness of breath or weakness. No change in drain output.
IV fluids started with bolus. Patient's BP began to improve. Stat echocardiogram and limited views demonstrated no evidence of pericardial effusion or reaccumulation of fluid. BP continued to rise with most recent at 1756 85/60 with a MAP of 67.
Patient again reports no complaints. Recommend continued close surveillance and monitoring, IV fluids and supportive care. 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 Plan for chest x-ray postprocedure as routine with echocardiogram in a.m. for reassessment
of pericardial effusion. Discussed with nursing, primary service, interventional cardiology, CT surgery.
--- NOTE | 2025-05-21 18:35 | PTCARENOTE ---
Bp 86/[address] Pan ordered 1000 ml NS bolus followed by 125 ml /HR NS IVF.
[2025-05-21] MEDS: VITAMIN B-12 PO ×2 (18:45→18:53)
[2025-05-21] MEDS: NSS 1000 IV ×2 (18:46→19:47)
[2025-05-21] MEDS: ZYLOPRIM 300 MG PO (18:46)
[2025-05-21] MEDS: CRESTOR 20 MG PO (21:34)
[2025-05-22] VITALS (19 sets, daily range): BP systolic 87–108; BP diastolic 52–69; BMI 21.1
--- NOTE | 2025-05-22 01:38 | PTCARENOTE ---
Assumed care on pt at 1900, aaox3, weak and drowsy, family at bedside. BP remains low with systolic 80-90's/50-60's. IVF's infusing at 125cc/hr. Left chest wall dsg CDI, free of bleeding or hematomas. Mid chest drain in place secured with clean and
dry dsg. AV paced w/ PVc's on the monitor, HR 70's. Denies pain, chest pressure, dizziness, nausea/vomiting. O2 at 2L via NC, pox 99%. Call hernandez within reach, POC in progress.
[2025-05-22] MEDS: NSS 1000 IV ×3 (03:07→18:38)
[2025-05-22 04:37] LABS: Hematocrit 33.2 % (39.0-52.0); Hemoglobin 11.0 g/dL (13.0-18.0); Mean Corp Hgb Conc. 33.1 g/dL (33.0-37.0); Mean Corpuscular Volume 105.4 fL (80.0-94.0); Platelet Count 147 10^3/uL (130-400); Red Cell Dist. Width 13.9 % (11.5-14.5)
[2025-05-22 05:10] LABS: Blood Urea Nitrogen 29 mg/dl (9-20); Calcium 8.1 mg/dl (8.4-10.2); Carbon Dioxide 22 mmol/L (22-30); Chloride 109 mmol/L (98-107); Estimated Creatinine Clearance 54 ml/min; Glucose 132 mg/dl (70-99); Magnesium 1.9 mg/dl (1.6-2.3); Potassium 4.4 mmol/L (3.5-5.1); Sodium 135 mmol/L (135-145); eGFR > 60.00
--- NOTE | 2025-05-22 06:16 | PTCARENOTE ---
[facility] completed as per order. Pt awake and alert at this time, VSS, denies pain/discomfort or SOB. Vacutainer drain with 0 cc output for this shift. Call hernandez within reach.
[2025-05-22] MEDS: ANCEF 5 IV ×3 (06:27→22:15)
--- NOTE | 2025-05-22 07:07 | W.PN.CARDCBS ---
Addendum entered and electronically signed by Sherman Linder, 05/22/25 09:36:
I saw and examined the patient.
The Blasting Cap Assembler's note was reviewed and I agree with the note.
Comment:
Plan:
No further drainage, for repeat echo this am
Consider pulling drain next 24-48 hrs
Resume Plavix next 24-48 hrs, will review with interventional
Receiving IVF, hopefully can stop today
Hold Metoprolol with hypotension
Tele: AV paced, device functioning appropriately.
Reviewed with EP, will review with interventional cardiology
Original Note:
Today's Communication / Plan
-
repeat echo today
determine timing for resuming Plavix, plan was 24-48 hrs post revision
Impression / Plan
-
Please see office note dated 05/20/25
Primary Traveling Electrician: Dr. Guadarrama
Assessment:
- hypotension, new pericardial effusion with tamponade s/p pericardiocentesis 05/20/25
- Presentation with AV block, asymptomatic s/p Medtronic permanent pacemaker 05/20
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
- Mild mitral regurgitation
- History of TIA
- Femoral fracture s/p ORIF 2011
- OA
- Hypertension
- Hyperlipidemia
- BPH
- Impaired fasting glucose
- Prostate CA
ECHO 03/18/2025: EF 53 to 60%, mild LVH, mild MR, severe with peak/mean gradients 59/33 mmHg, JOSE CRUZ 0.7 cm�, normal right heart
Echo 05/13/2025: EF 55 to 60%, status post 29 mm Hopkins ERINN TAVR with mean gradient 3 mmHg, no significant regurg
ECHO 05/14/25: EF 58%, mild cLVH, s/p #29 Hopkins ERINN TAVR with peak/mean gradients of 15/8mmHg, no paravalvular leak, no pericardial effusion
Plan:
- Patient presented today with new left bundle branch block and marked first-degree AV block status post TAVR 05/13/2025. A permanent pacer was placed 05/20/25
- Developed hypotension and chest pain around 9 PM 05/20
- Urgent echo showed preserved EF with stable TAVR valve but new moderate to severe circumferential pericardial effusion with signs of hemodynamic compromise and patient underwent urgent pericardiocentesis for 180cc with placement of pericardial
drain
-concern for RA perforation and went back to EP labs on 05/21/2025 for right atrial lead revision, as well as removal of right ventricular LBB AP lead and placement of new right ventricular LBB AP lead.
-post procedure hypotension - rec'd IVF and stat repeat echo no pericardial effusion, EF 55%
- no output from pericardial drain since 1800 05/21/2025.
-repeat echo today
- holding OP plavix 24-48hrs given above
- telem personally reviewed: AV paced, pvcs
Progress Note - Traveling Electrician
Subjective
Date of Service: May 22, 2025
-feels well
-no lightheadedness, SOB, chest pain, palps
-no drainage from pericardial drain since 1800 last night
Objective
Labs:
05/22/25 02:56
05/22/25 02:56
Labs
Hgb 11.0 g/dL (13.0-18.0) L 05/22/25 02:56
Hct 33.2 % (39.0-52.0) L 05/22/25 02:56
Plt Count 147 10^3/uL (130-400) 05/22/25 02:56
Sodium 135 mmol/L (135-145) 05/22/25 02:56
Potassium 4.4 mmol/L (3.5-5.1) 05/22/25 02:56
BUN 29 mg/dl (9-20) H 05/22/25 02:56
Creatinine 0.9 mg/dL (0.7-1.3) 05/22/25 02:56
Glucose 132 mg/dl (70-99) H 05/22/25 02:56
Troponins
05/20/25 05/20/25 05/21/25
09:37 21:36 05:44
Troponin I 0.076 H* 0.381 H* 0.259 H*
05/21/25 05/21/25 05/21/25
10:00 16:00 22:00
Troponin I Cancelled Cancelled Cancelled
Vital Signs and I&O:
Vital Signs
Temp Pulse Resp BP Pulse Ox
98.1 F 70 16 89/60 99
05/22/25 02:58 05/22/25 04:30 05/22/25 02:58 05/22/25 04:00 05/22/25 04:30
Vital Signs
Temp Pulse Resp BP Pulse Ox
98.1 F 70 16 89/60 99
05/22/25 02:58 05/22/25 04:30 05/22/25 02:58 05/22/25 04:00 05/22/25 04:30
Intake & Output
05/20/25 05/21/25 05/22/25 05/23/25
06:59 06:59 06:59 06:59
Intake Total 1000 / 1000 2860 / 2860
Output Total 850 / 850 380 / 380
Balance 150 / 150 2480 / 2480
Physical Exam
Physical Exam
GEN: No distress, awake, Ox3
HEENT: supple, anicteric, mmm
LUNGS: CTA, no wheezes/rales
CV: Reg, S1/S2, no murmur
ABD: soft, BS+, NT/ND
EXT: No edema
NEURO: Gross non-focal
SKIN: L chest wall pacer site with pressure drsg in place
[2025-05-22] MEDS: TOPROL XL PO (07:51)
--- NOTE | 2025-05-22 10:17 | PTCARENOTE ---
Assumed care of pt from night RN. AAOx3. AV paced on tele monitor, HR 70s. SpO2 99% on 2L nasal cannula. BP 97/64. Remains on IVF. Metoprolol placed on hold. Pericardial drain with no new output. Dressing CDI. Echo performed at bedside. LCW pressure
dressing CDI. Pt denies pain at this time. Remains in bed with family at bedside. Call hernandez in reach.
--- NOTE | 2025-05-22 13:07 | PTCARENOTE ---
Pericardial drain removed at bedside by Dr. Lagos. Pt tolerated. Gauze and Tegaderm dressing applied. Dressing CDI. Assessment otherwise unchanged. Pt in bed, at bedside.
[2025-05-22] MEDS: ZOFRAN 4 MG IV (17:34)
[2025-05-22] MEDS: VITAMIN B-12 1000 MCG PO (17:34)
[2025-05-22] MEDS: ZYLOPRIM 300 MG PO (17:34)
[2025-05-22] MEDS: TYLENOL 650 MG PO (18:59)
[2025-05-22] MEDS: CRESTOR 20 MG PO (22:15)
[2025-05-23] VITALS (16 sets, daily range): BP systolic 94–143; BP diastolic 57–83; BMI 22.3
--- NOTE | 2025-05-23 00:31 | PTCARENOTE ---
Received pt at change of shift resting in bed. V-paced w/ PVC's, HR 70's. SBP 90's-100's. pt denies any CP or SOB. NSS infusing per protocol. Left chest PPM site intact with Aquacel dressing on. Dressing C.D.I. where pericardial drain was pt
encouraged to call RN for assistance ambulating. Call hernandez within reach.
[2025-05-23] MEDS: NSS 1000 IV (03:02)
--- NOTE | 2025-05-23 08:48 | PTCARENOTE ---
received patient in bed, 'resting', patients breakfast is at bedside but just wants to rest at this time. monitor shows Vpaced, VSS. IV NSS @ 125cc/hr via left wrist. LCW Acuseal has old drainage noted. gauze and Tegaderm from pulling pericardial
drain yesterday is D/I. patient lung alejo are clear on RA, patient has dry cough.
--- NOTE | 2025-05-23 09:36 | W.PN.CARDCBS ---
Today's Communication / Plan
-
Drain pulled May 22.
Per interventional, start ASA 81 mg daily
Check echo in AM if stable, then likely d/c
Can stop IVF.
Consider resuming Metoprolol as bp improved.
Impression / Plan
-
Please see office note dated 05/20/25
Primary Employment Recruiter: Dr. Guadarrama
Impression:
- hypotension, new pericardial effusion with tamponade s/p pericardiocentesis 05/20/25
- Presentation with AV block, asymptomatic s/p Medtronic permanent pacemaker 05/20
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
- Mild mitral regurgitation
- History of TIA
- Femoral fracture s/p ORIF 2011
- OA
- Hypertension
- Hyperlipidemia
- BPH
- Impaired fasting glucose
- Prostate CA
ECHO 03/18/2025: EF 53 to 60%, mild LVH, mild MR, severe with peak/mean gradients 59/33 mmHg, JOSE CRUZ 0.7 cm�, normal right heart
Echo 05/13/2025: EF 55 to 60%, status post 29 mm Hopkins ERINN TAVR with mean gradient 3 mmHg, no significant regurg
ECHO 05/14/25: EF 58%, mild cLVH, s/p #29 Hopkins ERINN TAVR with peak/mean gradients of 15/8mmHg, no paravalvular leak, no pericardial effusion
Plan:
Drain pulled May 22.
Per interventional, start ASA 81 mg daily
Check echo in AM if stable, then likely d/c
Can stop IVF.
Consider resuming Metoprolol as bp improved.
Tele: AV paced, device functioning appropriately.
Reviewed with EP, will review with interventional cardiology
Discussed with daughter and at bedside.
Additional hx: Patient presented today with new left bundle branch block and marked first-degree AV block status post TAVR 05/13/2025. A permanent pacer was placed 05/20/25. Developed hypotension and chest pain around 9 PM 05/20. Urgent echo showed
preserved EF with stable TAVR valve but new moderate to severe circumferential pericardial effusion with signs of hemodynamic compromise and patient underwent urgent pericardiocentesis for 180cc with placement of pericardial drain. concern for RA
perforation and went back to EP labs on 05/21/2025 for right atrial lead revision, as well as removal of right ventricular LBB AP lead and placement of new right ventricular LBB AP lead. post procedure hypotension - rec'd IVF and stat repeat echo no
pericardial effusion, EF 55%
Progress Note - Employment Recruiter
Subjective
Date of Service: May 23, 2025
Pt seen and examined. No complaints. No chest pain or shortness of breath.
Objective
Labs:
05/22/25 02:56
05/22/25 02:56
Labs
Hgb 11.0 g/dL (13.0-18.0) L 05/22/25 02:56
Hct 33.2 % (39.0-52.0) L 05/22/25 02:56
Plt Count 147 10^3/uL (130-400) 05/22/25 02:56
Sodium 135 mmol/L (135-145) 05/22/25 02:56
Potassium 4.4 mmol/L (3.5-5.1) 05/22/25 02:56
BUN 29 mg/dl (9-20) H 05/22/25 02:56
Creatinine 0.9 mg/dL (0.7-1.3) 05/22/25 02:56
Glucose 132 mg/dl (70-99) H 05/22/25 02:56
Troponins
05/20/25 05/20/25 05/21/25
09:37 21:36 05:44
Troponin I 0.076 H* 0.381 H* 0.259 H*
05/21/25 05/21/25 05/21/25
10:00 16:00 22:00
Troponin I Cancelled Cancelled Cancelled
Vital Signs and I&O:
Vital Signs
Temp Pulse Resp BP Pulse Ox
98.5 F 71 15 94/57 89
05/23/25 08:04 05/23/25 08:04 05/23/25 08:04 05/23/25 06:00 05/23/25 08:04
Vital Signs
Temp Pulse Resp BP Pulse Ox
98.5 F 71 15 94/57 89
05/23/25 08:04 05/23/25 08:04 05/23/25 08:04 05/23/25 06:00 05/23/25 08:04
Intake & Output
05/21/25 05/22/25 05/23/25 05/24/25
06:59 06:59 06:59 06:59
Intake Total 1000 / 1000 2860 / 2860 1979 / 1979
Output Total 850 / 850 380 / 380 250 / 250
Balance 150 / 150 2480 / 2480 1730 / 1730
Physical Exam
Physical Exam
General: No acute distress, AAOX3
Neck: Negative JVD
Heart: Regular, Negative S3 positive S1/S2, Negative S4, No murmur
Lungs: CTA b/l, negative wheezes/rales/rhonchi
Abd: Positive BS, NT/ND, neg rebound/rigidity/guarding
Ext: Negative cyanosis/clubbing/edema
Neuro: nonfocal
[2025-05-23] MEDS: ASPIR LOW (ENTERIC COATED) 81 MG PO (11:06)
--- NOTE | 2025-05-23 11:11 | PTCARENOTE ---
ASA po given as ordered. D/C'd IVF as per Dr. Linder. patient repositioned in bed, sleeping throughout the morning. at bedside.
[2025-05-23] MEDS: FLUSH (NSS) 2 FLUSH IV (13:49)
[2025-05-23] MEDS: ZOFRAN 4 MG IV ×2 (13:49→20:41)
[2025-05-23] MEDS: ZYLOPRIM 300 MG PO (17:20)
[2025-05-23] MEDS: VITAMIN B-12 1000 MCG PO (17:20)
--- NOTE | 2025-05-23 18:20 | PTCARENOTE ---
daughter came out to desk and felt her fathers speech was off and his right hand was weaker and that his swallowing was more difficult. TT Dr. Linder, Dr. Linder called to unit, will order CT scan. I just got done walking patient in hallway, pancho.
well. able to understand patient when he speaks, when I gave him his medications he was sitting up in a chair and took them 1 at a time, pancho. well.
--- NOTE | 2025-05-23 18:31 | PTCARENOTE ---
went back in room to tell daughter that patient was going for CT scan and daughter left. patient sitting in chair watching football, I told him that we needed to do a CT scan, patient responded, 'is it necessary, ' I said the doctor ordered it and
want to make sure you are alright. patient ambulated to stretcher to go to CT scan.
--- NOTE | 2025-05-23 18:51 | PTCARENOTE ---
CT scan completed and patient back in bed.
--- NOTE | 2025-05-23 19:25 | PTCARENOTE ---
TT Dr. Linder with CT results no acute intracranial abnormality noted.
[2025-05-23] MEDS: CRESTOR 20 MG PO (21:45)
--- NOTE | 2025-05-23 23:42 | PTCARENOTE ---
Received pt at change of shift resting in bed. pt ambulating in room with assistance of RN V-paced w/ PVC's, HR 70's. pt denies any CP or SOB. Left chest PPM site intact with Aquacel dressing on. Dressing C.D.I. where pericardial drain was. pt c/o
nausea. PRN Zofran administered per pt request--see OCT. pt reports having relief. pt encouraged to call RN for assistance ambulating. Call hernandez within reach.
[2025-05-24] VITALS (7 sets, daily range): BP systolic 115–158; BP diastolic 73–83; BMI 22.4
[2025-05-24] MEDS: TOPROL XL 25 MG PO ×2 (08:00→13:12)
[2025-05-24] MEDS: SENOKOT-S 1 TABLET PO ×2 (08:00→20:21)
[2025-05-24] MEDS: MIRALAX 17 GRAMS PO (08:00)
[2025-05-24] MEDS: ASPIR LOW (ENTERIC COATED) 81 MG PO (08:00)
--- NOTE | 2025-05-24 08:03 | PTCARENOTE ---
patient c/o not having a BM for 4 days, miralax and Senokot given as ordered. patient has been c/o nausea after eating meals.
--- NOTE | 2025-05-24 08:40 | PTCARENOTE ---
received patient this am in bed, patient main complaint is constipation, medications already given. monitor shows Vpaced, VSS. patient is TANGIRNAQ, LCW Acuseal intact, old drainage noted. patient has dry, occasional cough. informed patient that he needs
to get OOB with each meal today, patient agrees.
--- NOTE | 2025-05-24 09:49 | PTCARENOTE ---
monitor showed 26 beats of Vtach, then 25 beats of Vtach vs SVT? VS 139/74, HR 83, patient was asymptomatic. patient c/o a moist cough. o2 sat on 2LNC, 96%. TT Carmen Patrick came to unit and is aware. no further orders at this time.instructed
patient to stay in bed.
--- NOTE | 2025-05-24 09:57 | CM ---
Reviewed chart. Met with and Mrs. Raza and their daughter to review discharge plans. He states he is feeling okay, but does have a cough. He states prior to admission he resides with his spouse in a two story home with one step to enter. He
states he has a full flight of steps to get to bedroom/full bathroom. He states he has a powder room on the first floor. He states prior to admission he was independent with ambulation and adls. He states he does not have any DME in the home. He
states he has a prescription plan and uses [facility]. We reviewed [facility] and he is agreeable to [facility]. He has selected [facility]. Telephone call to [facility] to make the referral. Sent the referral
to [facility]. Medical work-up in progress. The discharge plan is to return home with his spouse and [facility] when medically stable.
--- NOTE | 2025-05-24 10:25 | PTCARENOTE ---
care linq completed by RN as per Carmen ROQUE.
--- NOTE | 2025-05-24 11:58 | W.PN.CARDCBS ---
Addendum entered and electronically signed by Carmen Schmidt PA-C 05/24/25 15:09:
In response to CDI
patient has typical atrial flutter
Abnormal troponin nonischemic myocardial injury secondary to pacemaker implant, explant with reimplantation of leads and cardiac tamponade
Addendum entered and electronically signed by Sherman Linder DO 05/24/25 13:58:
I saw and examined the patient.
The Addiction Social Worker's note was reviewed and I agree with the note.
Comment:
Plan:
interrogate PPM with atrial flutter and possible aberrancy vs PMT
Start anticoagulation
Echo today without significant effusion.
Resume beta-staci therapy.
In light of starting anticoagulation will monitor 24 hours and repeat limited echo tomorrow.
Likely discharge in next 24 hours.
Discussed with patient daughter and nursing
Original Note:
Today's Communication / Plan
-
limited echo today
Start Toprol
PPM interrogation
Will need OAC as now in atrial flutter
Impression / Plan
-
Please see office note dated 05/20/25
Primary Produce Field Merchandiser: Dr. Guadarrama
Impression:
Presented 05/20/2025 with high grade AV block, new left bundle branch block and frequent PVCs following TAVR 05/13/2025
- symptomatic heart block, left bundle branch block
s/p Medtronic permanent pacemaker 05/20; pacemaker revision 05/21/2025
- hypotension, new pericardial effusion with tamponade s/p pericardiocentesis 05/20/25
- Severe symptomatic
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
- Mild mitral regurgitation
- History of TIA
- Femoral fracture s/p ORIF 2011
- OA
- Hypertension
- Hyperlipidemia
- BPH
- Impaired fasting glucose
- Prostate CA
ECHO 03/18/2025: EF 53 to 60%, mild LVH, mild MR, severe with peak/mean gradients 59/33 mmHg, JOSE CRUZ 0.7 cm�, normal right heart
Echo 05/13/2025: EF 55 to 60%, status post 29 mm Hopkins ERINN TAVR with mean gradient 3 mmHg, no significant regurg
ECHO 05/14/25: EF 58%, mild cLVH, s/p #29 Hopkins ERINN TAVR with peak/mean gradients of 15/8mmHg, no paravalvular leak, no pericardial effusion
Echo 05/22/2025 Limited study: EF 61%, trivial pericardial effusion
Plan:
Presented 05/20/2025 with high grade AV block, new left bundle branch block and frequent PVCs following TAVR 05/13/20
Underwent urgent pacemaker 05/20/2025. However patient developed symptomatic hypotension and was found to have new pericardial effusion with tamponade and underwent pericardiocentesis 05/20/2025
Pacemaker revision 05/21/2025
Drain pulled May 22.
Per interventional cardiology, ASA 81 mg daily started 05/23
Limited echo 05/24 pending
Now appears that patient is having atrial flutter on telemetry. Confirmed on EKG and by [employer] express pacemaker interrogation which shows patient has been in atrial flutter for at least 20 hours.
Will need to consider oral anticoagulation. Timing somewhat tricky as patient had pericardial effusion with tamponade following pacemaker implant. Echo from 05/24/2025 pending.
Also noted to have runs wide complex tachycardia possible A-fib with aberrancy versus pacemaker mediated tachycardia
Blood pressure has improved will restart Toprol 25 mg daily
Patient has been coughing and has decreased breath sounds on left side. Will check chest x-ray. Afebrile.
Patient did have head CT on the evening of 05/23/2025 which showed no acute intracranial abnormality. Head CT performed after family thought patient's voice sounded strange. Patient and family reporting voice now back to normal
Discussed with nursing, daughter and at bedside.
Additional hx: Patient presented today with new left bundle branch block and marked first-degree AV block status post TAVR 05/13/2025. A permanent pacer was placed 05/20/25. Developed hypotension and chest pain around 9 PM 05/20. Urgent echo showed
preserved EF with stable TAVR valve but new moderate to severe circumferential pericardial effusion with signs of hemodynamic compromise and patient underwent urgent pericardiocentesis for 180cc with placement of pericardial drain. concern for RA
perforation and went back to EP labs on 05/21/2025 for right atrial lead revision, as well as removal of right ventricular LBB AP lead and placement of new right ventricular LBB AP lead. post procedure hypotension - rec'd IVF and stat repeat echo no
pericardial effusion, EF 55%
Progress Note - Produce Field Merchandiser
Subjective
Date of Service: May 24, 2025
Patient seen and examined. Patient sitting in chair reports that he is feeling well, although he did have an episode this morning where he felt like he needed to have a bowel movement which correlated with short run of wide-complex tachycardia.
Patient also notes ongoing cough. Family feels his voice sounds more like himself now
Objective
Labs:
05/22/25 02:56
05/22/25 02:56
Labs
Hgb 11.0 g/dL (13.0-18.0) L 05/22/25 02:56
Hct 33.2 % (39.0-52.0) L 05/22/25 02:56
Plt Count 147 10^3/uL (130-400) 05/22/25 02:56
Sodium 135 mmol/L (135-145) 05/22/25 02:56
Potassium 4.4 mmol/L (3.5-5.1) 05/22/25 02:56
BUN 29 mg/dl (9-20) H 05/22/25 02:56
Creatinine 0.9 mg/dL (0.7-1.3) 05/22/25 02:56
Glucose 132 mg/dl (70-99) H 05/22/25 02:56
Troponins
05/21/25 05/21/25 05/21/25
10:00 16:00 22:00
Troponin I Cancelled Cancelled Cancelled
Vital Signs and I&O:
Vital Signs
Temp Pulse Resp BP Pulse Ox
97.9 F 73 18 158/83 93
05/24/25 07:54 05/24/25 08:00 05/24/25 07:54 05/24/25 08:00 05/24/25 08:30
Vital Signs
Temp Pulse Resp BP Pulse Ox
97.9 F 73 18 158/83 93
05/24/25 07:54 05/24/25 08:00 05/24/25 07:54 05/24/25 08:00 05/24/25 08:30
Intake & Output
05/22/25 05/23/25 05/24/25 05/25/25
06:59 06:59 06:59 06:59
Intake Total 2860 / 2860 1979 / 1979 120 / 120
Output Total 380 / 380 250 / 250 275 / 275
Balance 2480 / 2480 1730 / 1730 -155 / -155
Physical Exam
Physical Exam
GEN: No distress, awake, Ox3, sitting in chair
HEENT: supple, anicteric, mmm
LUNGS: decreased BS on left, cough with deep breaths, no wheezes/rales
CV: irreg irreg, S1/S2, no murmur, rub, gallop
ABD: soft, BS+, NT/ND
EXT: No edema, clubbing, cyanosis
NEURO: Gross non-focal
SKIN: No rash, warm, dry
--- NOTE | 2025-05-24 12:32 | PTCARENOTE ---
EKG obtained as ordered, patient is in Aflutter, Carmen ROQUE aware.
--- NOTE | 2025-05-24 12:43 | PTCARENOTE ---
Addendum entered by Radha Weller RN 05/24/25 18:15:
Carmen ROQUE aware of results no further orders at this time.
Original Note:
patient going for chest xray via stretcher accompanied by [facility].
--- NOTE | 2025-05-24 14:07 | PN.CDI ---
CDI
- -
CDI:
Physician Documentation Request
Admit Date: 05/21/25 13:35
Dear Carmen Schmidt,
05/24 progress note states 'Now appears that patient is having atrial flutter on telemetry. Confirmed on EKG and by [employer] express pacemaker interrogation which shows patient has been in atrial flutter for at least 20 hours.'
Please provide further specificity regarding atrial flutter:
Typical Atrial Flutter - Type I: Classic or common atrial flutter, Rate is 240-340 beats/min. Usually responds to atrial pacing.
Atypical Atrial Flutter - Type II: Less common and more unstable. Rate is 340-440 beats/min. Less responsive to atrial pacing.
Other - please specify
Use of terms such as suspected, likely, concern for, or probable (associated with a specific diagnosis that is being evaluated, monitored, or treated as if it exists) are acceptable and can be coded in the inpatient setting, when documented at the
time of discharge.
Thank you,
Michelle Vickers RN, BSN
CDI Specialist
tiger text
Please use your independent medical judgment in providing your response.
--- NOTE | 2025-05-24 14:13 | PN.CDI ---
CDI
- -
CDI:
Physician Documentation Request
Admit Date: 05/21/25 13:35
Dear Carmen Schmidt,
Patient admitted with cardiac tamponade after pacemaker placement on 05/20 .
Troponin results:
05/20/25 05/20/25 05/21/25
09:37 21:36 05:44
Troponin I 0.076 H* 0.381 H* 0.259 H*
Please provide a diagnosis that supports the above lab abnormalities and additional evaluation/ monitoring:
Nonischemic cardiomyopathy
Type II MS demand ischemia
Other
Use of terms such as suspected, likely, concern for, or probable (associated with a specific diagnosis that is being evaluated, monitored, or treated as if it exists) are acceptable and can be coded in the inpatient setting, when documented at the
time of discharge.
Thank you,
Michelle Vickers RN, BSN
CDI Specialist
tiger text
Please use your independent medical judgment in providing your response.
[2025-05-24] MEDS: VITAMIN B-12 1000 MCG PO (18:14)
[2025-05-24] MEDS: ZYLOPRIM 300 MG PO (18:14)
[2025-05-24] MEDS: ELIQUIS 5 MG PO (20:13)
[2025-05-24] MEDS: CRESTOR 20 MG PO (21:05)
[2025-05-25 02:46] VITALS: BP 142/79
[2025-05-25 02:58] VITALS: BMI 22.3
--- NOTE | 2025-05-25 04:00 | PTCARENOTE ---
Assumed care on pt at 1900, aaox3, denies cp, lungs diminished and coarse b/l, O2 @ 2L via NC during sleep, denies SOB, Pox 96% RA. Vpaced on tele monitor with underlying Aflutter, HR 70's. Eliquis started at HS as per order, SCD compression sleeves
on during night. BP stable. Dsg to left upper chest and mid chest drain site CDI. updated on POC, call hernandez within reach
[2025-05-25 07:22] VITALS: BP 125/73
[2025-05-25] MEDS: TOPROL XL 25 MG PO (08:15)
[2025-05-25] MEDS: ELIQUIS 5 MG PO (08:16)
[2025-05-25] MEDS: DUONEB 3 ML INH (09:04)
--- NOTE | 2025-05-25 09:05 | W.PN.CARDCBS ---
Addendum entered and electronically signed by Carmen Schmidt PA-C 05/25/25 13:40:
Follow-up echo from 05/25/2025 shows no evidence of pericardial effusion. Patient stable for discharge.
Outpatient cardiology follow-up and echo has been arranged
Addendum entered and electronically signed by Cresencio Lagos MD 05/25/25 11:38:
Attending addendum: Patient seen and examined. PA note reviewed and findings independently confirmed by me. Continues to feel reasonably well. Anxious to go home. Awaiting repeat echocardiogram
Telemetry: atrial flutter vs atypical AT. Short runs of wider complex that are likely aberrantly conduced beats.
Physical exam
GEN: AAO x 3. No acute distress
HEENT: NC/AT, sclera are anicteric
LUNGS: Diminished breath sounds at base. No wheezes
CV: Mostly regular rhythm with paced beat. Flutter waves are noted on telemetry. Murmur at USB
Incision Dressing: Dry
ABD : Soft, NT, Bowel sounds are present.
EXT: No CCE
NEURO: No focal neurologic deficits
Recommendation:
-On Eliquis 5mg bid (he is above 79 y/o, Cr. is normal and weight is 150 pounds 68 kg)
-Awaiting repeat echocardiogram
-If stable then we can probably discharge with plans for repeat echocardiogram to assess for effusion and assess valve gradients
-He should followup with Dr. Guadarrama after echo completed
-Awaiting repeat echocardiogram
Original Note:
Today's Communication / Plan
-
Check limited echo with initiation of anticoagulation
Lasix 20 mg IV x 1, nebulizer treatment
Continue Eliquis 5 mg twice a day
Continue Toprol 25 mg daily
Outpatient echo scheduled for 06/03/2025
Likely discharge later today if repeat echo stable
Impression / Plan
-
Please see office note dated 05/20/25
Primary Process Stripper: Dr. Guadarrama
Impression:
Presented 05/20/2025 with high grade AV block, new left bundle branch block and frequent PVCs following TAVR 05/13/2025
- symptomatic heart block, left bundle branch block
s/p Medtronic permanent pacemaker 05/20; pacemaker revision 05/21/2025
- hypotension, new pericardial effusion with tamponade s/p pericardiocentesis 05/20/25
- Severe symptomatic
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
-Asymptomatic typical atrial flutter, new 05/23/2025
New to Eliquis this admission
-Elevated troponin, nonischemic myocardial injury secondary to pacemaker implant, explant with reimplantation of leads and cardiac tamponade
- Mild mitral regurgitation
- History of TIA
- Femoral fracture s/p ORIF 2011
- OA
- Hypertension
- Hyperlipidemia
- BPH
- Impaired fasting glucose
- Prostate CA
ECHO 03/18/2025: EF 53 to 60%, mild LVH, mild MR, severe with peak/mean gradients 59/33 mmHg, JOSE CRUZ 0.7 cm�, normal right heart
Echo 05/13/2025: EF 55 to 60%, status post 29 mm Hopkins ERINN TAVR with mean gradient 3 mmHg, no significant regurg
ECHO 05/14/25: EF 58%, mild cLVH, s/p #29 Hopkins ERINN TAVR with peak/mean gradients of 15/8mmHg, no paravalvular leak, no pericardial effusion
Echo 05/22/2025 Limited study: EF 61%, trivial pericardial effusion
Echo 05/24/2025 Limited study: EF 60%. Trivial pericardial effusion
Echo 05/25/2025 Limited study: Pending
Plan:
Presented 05/20/2025 with high grade AV block, new left bundle branch block and frequent PVCs following TAVR 05/13/20
-Underwent urgent pacemaker 05/20/2025. However patient developed symptomatic hypotension and was found to have new pericardial effusion with tamponade and underwent pericardiocentesis 05/20/2025
-Pacemaker revision 05/21/2025
- Pacemaker interrogation 05/24/2025 with appropriate function. Patient found to be in atrial flutter which started 05/23/2025, rate controlled
Pericardial effusion requiring drain
-drain pulled Sept 20.
-Per interventional cardiology, ASA 81 mg daily started 05/23. Stopped 05/24/2025 after patient developed atrial flutter
-Limited echo 05/24/2025 with trivial pericardial effusion
-Repeat limited echo scheduled for 05/25/2025 given initiation of anticoagulation on 05/24/2025
-Scheduled outpatient limited echo for 06/03/2025 to rule out reaccumulation of pericardial effusion
Developed typical atrial flutter 05/23/2025
- Confirmed on EKG and by [facility] pacemaker interrogation 05/24/2025 which showed patient has been in atrial flutter
- Initiated on Eliquis 5 mg twice daily evening of 05/24/2025, aspirin stopped
- Review of telemetry shows runs wide complex tachycardia likely A flutter with aberrancy versus RBBB
- Toprol increased to 25 mg daily
Patient has been coughing with faint wheeze and has decreased breath sounds at bases. CXR 05/24/2025 with small bilateral pleural effusions and some adjacent atelectasis.
- Weaned off Oxygen this am. Weight up if scale correct. Will give 1 dose of IV Lasix 05/25/2025. Patient was not on Lasix prior to admission
- Nebulizer treatment this a.m.
-Encouraged incentive spirometry
Patient did have head CT on the evening of 05/23/2025 which showed no acute intracranial abnormality. Head CT performed after family thought patient's voice sounded strange. Patient and family reporting voice now back to normal
Patient to go home with VN. Outpatient cardiology visit and echo scheduled
Discussed with nursing, daughter and at bedside.
Additional hx: Patient presented today with new left bundle branch block and marked first-degree AV block status post TAVR 05/13/2025. A permanent pacer was placed 05/20/25. Developed hypotension and chest pain around 9 PM 05/20. Urgent echo showed
preserved EF with stable TAVR valve but new moderate to severe circumferential pericardial effusion with signs of hemodynamic compromise and patient underwent urgent pericardiocentesis for 180cc with placement of pericardial drain. concern for RA
perforation and went back to EP labs on 05/21/2025 for right atrial lead revision, as well as removal of right ventricular LBB AP lead and placement of new right ventricular LBB AP lead. post procedure hypotension - rec'd IVF and stat repeat echo no
pericardial effusion, EF 55%
Progress Note - Process Stripper
Subjective
Date of Service: May 25, 2025
Patient seen and examined sitting in bed. Overall he reports that he is feeling well. Still notes some mild coughing and phlegm.
Objective
Labs:
05/22/25 02:56
05/22/25 02:56
Labs
Hgb 11.0 g/dL (13.0-18.0) L 05/22/25 02:56
Hct 33.2 % (39.0-52.0) L 05/22/25 02:56
Plt Count 147 10^3/uL (130-400) 05/22/25 02:56
Sodium 135 mmol/L (135-145) 05/22/25 02:56
Potassium 4.4 mmol/L (3.5-5.1) 05/22/25 02:56
BUN 29 mg/dl (9-20) H 05/22/25 02:56
Creatinine 0.9 mg/dL (0.7-1.3) 05/22/25 02:56
Glucose 132 mg/dl (70-99) H 05/22/25 02:56
Vital Signs and I&O:
Vital Signs
Temp Pulse Resp BP Pulse Ox
98.6 F 75 18 125/73 98
05/25/25 07:23 05/25/25 08:15 05/25/25 07:23 05/25/25 08:15 05/25/25 07:23
Vital Signs
Temp Pulse Resp BP Pulse Ox
98.6 F 75 18 125/73 98
05/25/25 07:23 05/25/25 08:15 05/25/25 07:23 05/25/25 08:15 05/25/25 07:23
Intake & Output
05/23/25 05/24/25 05/25/25 05/26/25
06:59 06:59 06:59 06:59
Intake Total 1979 / 1979 120 / 120 360 / 360
Output Total 250 / 250 275 / 275
Balance 1730 / 1730 -155 / -155 360 / 360
Physical Exam
Physical Exam
GEN: No distress, awake, Ox3, sitting in chair
HEENT: supple, anicteric, mmm
LUNGS: decreased BS at bases with faint wheeze, cough with deep breaths, no wheezes/rales
CV: irreg irreg, S1/S2, no murmur, rub, gallop
Chest: Aquacel dressing clean dry intact over pacemaker incision. No hematoma, heme or ecchymosis noted
ABD: soft, BS+, NT/ND
EXT: No edema, clubbing, cyanosis
NEURO: Gross non-focal
SKIN: No rash, warm, dry
[2025-05-25] MEDS: LASIX 20 MG IV (11:02)
[2025-05-25 11:11] VITALS: BP 106/57
--- NOTE | 2025-05-25 14:30 | CM ---
Reviewed chart. Met with and Mrs. Raza to review discharge plans. Reviewed co-pays for Eliquis 5 mg po bid. His co-pay for a month supply of Eliquis is $145.97 and for a 90 day supply the cost is $405.90. Placed the one month free coupon in his
red discharge folder. After he mets his $2000.00 out of pocket cost his co-pay would be zero. We also reviewed [facility]. They are agreeable to [facility]. Prior to admission he resides with his spouse in a two story home with one
step to enter. He has a full flight of steps to get to bedroom/full bathroom. He has a powder room on the first floor. Prior to admission he was independent with ambulation and adls. He does not have any DME in the home. He has a prescription
plan and uses [facility]. We reviewed [facility] and he is agreeable to [facility]. Medical work-up in progress. The discharge plan is to return home with his spouse and [facility] when medically stable.
Initialized on 05/24/25 09:57 - END OF NOTE
--- NOTE | 2025-05-25 14:38 | PTCARENOTE ---
Pt voided lrg amts urine after having IV Lasix 20mg. Pt states his breathing feels better and he is coughing less. Discharge ordered, D/C instructions reviewed with Pt, his and his son, they expressed understanding.
== END 2025-05-25 15:10 | disposition home or self-care (01) | DRG 243 ==
LOC: IVU 13:35
PROVIDERS: Internal Medicine Cardiovascular Disease; Nurse Practitioner Adult Health; Physician Assistant; Physician Assistant Medical; Student in an Organized Health Care Education/Training Program; ADMITTING PHYSICIAN Nuclear Medicine Nuclear Cardiology; EMERGENCY PHYSICIAN Emergency Medicine; FAMILY PHYSICIAN Internal Medicine
PROC: 02H63JZ Insertion of Pacemaker Lead into Right Atrium, Percutaneous Approach (ICD-10-PCS; 2025-05-20)
PROC: 0W9D30Z Drainage of Pericardial Cavity with Drainage Device, Percutaneous Approach (ICD-10-PCS; 2025-05-20)
PROC: 0JH606Z Insertion of Pacemaker, Dual Chamber into Chest Subcutaneous Tissue and Fascia, Open Approach (ICD-10-PCS; 2025-05-20)
PROC: 02HK3JZ Insertion of Pacemaker Lead into Right Ventricle, Percutaneous Approach (ICD-10-PCS; 2025-05-20)
PROC: 3E0102A Introduction of Anti-Infective Envelope into Subcutaneous Tissue, Open Approach (ICD-10-PCS; 2025-05-20)
PROC: 02PA3MZ Removal of Cardiac Lead from Heart, Percutaneous Approach (ICD-10-PCS; 2025-05-21)
PROC: 4B02XSZ Measurement of Cardiac Pacemaker, External Approach (ICD-10-PCS; 2025-05-21)
PROC: 02WA3MZ Revision of Cardiac Lead in Heart, Percutaneous Approach (ICD-10-PCS; 2025-05-21)
DX: I44.0 Atrioventricular block, first degree (principal); I31.39 Other pericardial effusion (noninflammatory); I31.4 Cardiac tamponade; I5A Non-ischemic myocardial injury (non-traumatic); E78.00 Pure hypercholesterolemia, unspecified; I11.9 Hypertensive heart disease without heart failure; I44.7 Left bundle-branch block, unspecified; I49.3 Ventricular premature depolarization; I95.81 Postprocedural hypotension; R73.01 Impaired fasting glucose; N40.0 Benign prostatic hyperplasia without lower urinary tract symptoms; M19.90 Unspecified osteoarthritis, unspecified site; I48.3 Typical atrial flutter; I34.0 Nonrheumatic mitral (valve) insufficiency; Z95.2 Presence of prosthetic heart valve; Z86.73 Personal history of transient ischemic attack (TIA), and cerebral infarction without residual deficits; Z85.46 Personal history of malignant neoplasm of prostate
CPT/HCPCS: 33016; 33208; 33215; 33216; 33235; 70450; 71045; 71046; 71250; 80048; 80053; 82962; 83735; 84484; 85025; 85027; 86618; 86850; 86900; 86901; 86920; 93005; 93306; 93308; 94640; 99285; C1769; C1785; C1887; C1894; C1898

== ENCOUNTER → 2025-06-10 12:28 | Outpatient (REF) | payer OTHER, SELFPAY | LOC: HWRCS 12:28 | PROVIDERS: ATTENDING PHYSICIAN Internal Medicine Cardiovascular Disease; FAMILY PHYSICIAN Internal Medicine | DX: Z95.2 Presence of prosthetic heart valve (principal) | CPT/HCPCS: 93306 ==

== ENCOUNTER 2025-07-01 17:34 | Outpatient (RCR) | payer OTHER, SELFPAY | END 2025-07-01 23:59 | disposition home or self-care (01) | LOC: CRHB 17:34 | PROVIDERS: ATTENDING PHYSICIAN Internal Medicine Cardiovascular Disease | DX: Z95.4 Presence of other heart-valve replacement (principal) | CPT/HCPCS: G0422; G0423 ==

== ENCOUNTER 2025-07-27 10:38 | Outpatient (RCR) | payer OTHER, SELFPAY | END 2025-07-27 23:59 | disposition home or self-care (01) | LOC: CRHB 10:38 | PROVIDERS: ATTENDING PHYSICIAN Internal Medicine Cardiovascular Disease | DX: Z95.4 Presence of other heart-valve replacement (principal) | CPT/HCPCS: G0422; G0423 ==

== ENCOUNTER 2025-08-31 08:30 | Outpatient (RCR) | payer OTHER, SELFPAY | END 2025-08-31 23:59 | disposition home or self-care (01) | LOC: CRHB 08:30 | PROVIDERS: ATTENDING PHYSICIAN Internal Medicine Cardiovascular Disease | DX: Z95.4 Presence of other heart-valve replacement (principal) | CPT/HCPCS: G0422; G0423 ==